=== PATIENT | male | born 1955 | race Caucasian/White ===

== ENCOUNTER → 2017-01-08 | Outpatient (CLI) | payer OTHER ==
[2016-03-10 08:23] VITALS: BP 147/74
[~2017-01-08] MED LIST: ACET500T68 PO; AMIT25TA PO; CELE200C PO; CHOL500016 PO; CYCL10TA2 PO; GABA800T2 PO; LORA10TA3 PO; MELA3TAB PO
--- NOTE | 2017-01-11 16:12 | SLEEP ---
DATE OF STUDY: 01/08/2017 ATTENDING PHYSICIAN: Dr. Karri Way. The patient is a 61-year-old who weighs 230 pounds with a BMI of 32. The patient's Kelayres score was 9. Sleep study was performed at [facility]. This was a split night study. During the night study, the patient spent 399 minutes in bed and slept for 316 minutes with a sleep efficiency of 79%. Sleep latency was 19 minutes with a REM latency of 284 minutes. Overall, sleep architecture showed normal stage I sleep, slightly increased stage II sleep, normal slow wave, and normal REM sleep. During the initial diagnostic portion of the study, the patient slept for 158 minutes. During this time, there was 1 obstructive apnea, 7 mixed and 1 central apneas. There were 71 hypopneas. The patient's apnea-hypopnea index was 30 per hour. Supine index was 38 per hour. REM sleep was not seen during the diagnostic portion. EKG monitoring revealed normal sinus rhythm. Average heart rate was 67 beats per minute. No sustained arrhythmias were observed. Nocturnal oximetry study revealed a mean oxygen saturation of 97% with the lowest of 88%. PLMS were seen at index of 4 per hour, and 1 per hour caused EEG arousals. The patient met the criteria for CPAP initiation. It was started at 5 cm of water and titrated up to 7 cm of water. At the final pressure, the patient had 80 minutes of sleep. Supine as well as REM sleep was observed. AHI was reduced to 3 per hour, and oxygen saturation remained above 90%. The patient used a small-sized DreamWear nasal mask. IMPRESSION: 1. Severe sleep apnea-hypopnea syndrome with an apnea-hypopnea index of 30 per hour. 2. No clinically significant nocturnal hypoxia. 3. No clinically significant periodic limb movements during sleep. RECOMMENDATIONS: 1. CPAP at 7 cm of water completely eliminated the patient's sleep apnea, and should be used on a nightly basis. 2. Follow up in 4-6 weeks to assess compliance with CPAP and to document clinical improvement. 3. Weight loss is strongly advised. 4. Avoid [employer] depressants. 5. Caution regarding driving until symptoms of sleep apnea resolve with the use of CPAP. DONG ALLISON MD DR: JUAN/shahbaz JOB#: [id number] / [id number] KARRI Allison
== END | disposition home or self-care (01) ==
LOC: SLPLAB 18:58
PROVIDERS: ATTEND Internal Medicine
DX: G47.33 Obstructive sleep apnea (adult) (pediatric) (principal)
CPT/HCPCS: 95810

== ENCOUNTER → 2018-02-21 | Outpatient (CLI) | payer OTHER ==
[2018-02-21 10:13] LABS: ADD MAN DIFF? NO
[2018-02-21 10:30] LABS: BASO % 1 % (0-3); EOS # 0.4 x10^3/uL (0.0-0.7); EOS % 7 % (0-3); HEMATOCRIT 46.8 % (39.0-53.0); HEMOGLOBIN 16.1 g/dL (13.0-17.5); LYMPH # 2.8 x10^3/uL (1.0-4.8); LYMPH % 47 % (24-48); MEAN CORPUSCULAR HEMOGLOBIN 31 pg (25-35); MEAN CORPUSCULAR HGB CONC 34 g/dL (31-37); MEAN CORPUSCULAR VOLUME 90 fL (79-100); MONO # 0.6 x10^3/uL (0.0-1.1); MONO % 10 % (0-9); NEUT # 2.1 x10^3uL (1.8-7.7); NEUT % 35 % (31-73); PLATELET COUNT 163 x10^3/uL (140-400); RED BLOOD COUNT 5.19 x10^6/uL (4.30-5.70)
[2018-02-21 10:39] LABS: ALBUMIN 3.9 g/dL (3.4-5.0); ALBUMIN/GLOBULIN RATIO 1.1 (1.0-1.7); ALK PHOS 76 U/L (46-116); ALT (SGPT) 37 U/L (16-63); ANION GAP 10 (6-14); AST (SGOT) 20 U/L (15-37); BLOOD UREA NITROGEN 13 mg/dL (8-26); BUN/CREATININE RATIO 12 (6-20); CALCIUM 8.9 mg/dL (8.5-10.1); CARBON DIOXIDE 26 mmol/L (21-32); CHLORIDE 107 mmol/L (98-107); CHOLESTEROL 196 mg/dL (0-200); CREATININE 1.1 mg/dL (0.7-1.3); GFR 67.6; GLUCOSE 89 mg/dL (70-99); HDLC 29 mg/dL (40-60); LDLC 138 mg/dL (0-100); NON-HDL CHOLESTEROL 167 mg/dL (0-129); POTASSIUM 4.3 mmol/L (3.5-5.1); SODIUM 143 mmol/L (136-145); TOTAL BILIRUBIN 0.4 mg/dL (0.2-1.0); TOTAL PROTEIN 7.6 g/dL (6.4-8.2); TRIGLYCERIDES 147 mg/dL (0-150); VLDLC 29 mg/dL (0-40)
[2018-02-21 10:43] LABS: CHOLESTEROL/HDL RATIO 6.8
[2018-02-21 10:50] LABS: THYROID STIM HORMONE (TSH) 2.737 uIU/mL (0.358-3.74)
[2018-02-21 11:39] LABS: PROSTATE SPECIFIC ANTIGEN 1.71 ng/mL (0.00-4.00)
[2018-02-21 12:37] LABS: BILIRUBIN,URINE NEGATIVE (NEG); CLARITY,URINE CLEAR; COLOR,URINE YELLOW; GLUCOSE,URINE NEGATIVE (NEG); NITRITE,URINE NEGATIVE (NEG); PH,URINE 5.5; PROTEIN,URINE NEGATIVE (NEG-TRACE); UROBILINOGEN,URINE 0.2 mg/dL (0.2 mg/dL)
[2018-02-21 13:02] LABS: BACTERIA,URINE 0 /HPF (0-FEW); RBC,URINE 0 /HPF (0-2); SQUAMOUS EPITHELIAL CELL,UR FEW /LPF; WBC,URINE 0 /HPF (0-4)
== END | disposition home or self-care (01) ==
LOC: LAB 09:36
DX: Z12.5 Encounter for screening for malignant neoplasm of prostate (principal); Z00.01 Encounter for general adult medical examination with abnormal findings; R79.89 Other specified abnormal findings of blood chemistry
CPT/HCPCS: 36415; 80053; 80061; 81001; 84443; 85025; G0103

== ENCOUNTER → 2018-03-21 | Outpatient (CLI) | payer OTHER ==
[~2018-03-21] MED LIST changes: -ACET500T68 PO; -AMIT25TA PO; -CELE200C PO; -CHOL500016 PO; -CYCL10TA2 PO; -GABA800T2 PO; +IOHEXOL 180 MG/ML 10 ML VIAL.; +LIDOCAINE 1% PF 2 ML VIAL.; -LORA10TA3 PO; -MELA3TAB PO; +methylPREDNISolone ACETATE 40 MG/ML VIAL.; +methylPREDNISolone ACETATE 80 MG/ML VIAL.
== END ==
LOC: PNCL 12:40
DX: M51.16 Intervertebral disc disorders with radiculopathy, lumbar region (principal); M50.10 Cervical disc disorder with radiculopathy, unspecified cervical region; F17.210 Nicotine dependence, cigarettes, uncomplicated; Z98.890 Other specified postprocedural states; Z87.39 Personal history of other diseases of the musculoskeletal system and connective tissue; Z86.010 Personal history of colon polyps
CPT/HCPCS: 62323; J1030; J1040; Q9965

== ENCOUNTER → 2018-05-08 | Outpatient (CLI) | payer OTHER | LOC: MRI 10:16 | DX: M51.16 Intervertebral disc disorders with radiculopathy, lumbar region (principal); M48.061 Spinal stenosis, lumbar region without neurogenic claudication; M51.26 Other intervertebral disc displacement, lumbar region; M50.10 Cervical disc disorder with radiculopathy, unspecified cervical region; M19.90 Unspecified osteoarthritis, unspecified site; G47.30 Sleep apnea, unspecified; Z98.890 Other specified postprocedural states; Z86.010 Personal history of colon polyps; Z90.49 Acquired absence of other specified parts of digestive tract; Z79.899 Other long term (current) drug therapy; Z87.891 Personal history of nicotine dependence | CPT/HCPCS: 72148 ==

== ENCOUNTER → 2018-05-09 | Outpatient (CLI) | payer OTHER | END | disposition home or self-care (01) | LOC: PNCL 08:16 | DX: M51.16 Intervertebral disc disorders with radiculopathy, lumbar region (principal); M96.1 Postlaminectomy syndrome, not elsewhere classified; M48.061 Spinal stenosis, lumbar region without neurogenic claudication; M50.10 Cervical disc disorder with radiculopathy, unspecified cervical region; Z98.890 Other specified postprocedural states; Z86.010 Personal history of colon polyps; Z90.49 Acquired absence of other specified parts of digestive tract; M19.90 Unspecified osteoarthritis, unspecified site; Z87.891 Personal history of nicotine dependence; Z86.19 Personal history of other infectious and parasitic diseases; Z79.899 Other long term (current) drug therapy; Z87.39 Personal history of other diseases of the musculoskeletal system and connective tissue; G47.30 Sleep apnea, unspecified | CPT/HCPCS: 62323; J1030; J1040; Q9965 ==

== ENCOUNTER → 2018-06-06 | Outpatient (CLI) | payer OTHER ==
[2016-03-10 08:23] VITALS: BP 147/74
[~2018-06-06] MED LIST changes: +ACET500T68 PO; +AMIT25TA PO; +CELE200C PO; +CHOL500016 PO; +CYCL10TA2 PO; +GABA800T2 PO; -IOHEXOL 180 MG/ML 10 ML VIAL.; +IOHEXOL 180 MG/ML 10 ML VIAL. ONE; -LIDOCAINE 1% PF 2 ML VIAL.; +LIDOCAINE 2% PF 2ML VIAL. ONE; +LORA10TA3 PO; +MELA3TAB2 PO; -methylPREDNISolone ACETATE 40 MG/ML VIAL.; +methylPREDNISolone ACETATE 40 MG/ML VIAL. ONE; -methylPREDNISolone ACETATE 80 MG/ML VIAL.; +methylPREDNISolone ACETATE 80 MG/ML VIAL. ONE
--- NOTE | 2018-06-06 13:41 | PAIN ---
DATE OF SERVICE: 06/06/2018 DIAGNOSES: Lumbar radiculopathy with lumbar degenerative disk disease and lumbar post-laminectomy syndrome with lumbar herniated disk. HISTORY OF PRESENT ILLNESS: The patient is a 62-year-old male who returns for followup status post lumbar epidural steroid injection x 2, last seen 05/09/2018. The patient reports he did very well for the last injection about 60% improvement overall in the low back and right leg. The patient reports still some pain in the left leg and numbness in the left leg as well, but doing much better overall. The patient reports his pain is worse with standing or standing up straight, but he has been increasing the distance walking, doing household activity, also playing drums more comfortably. The patient reports his pain is 7 on a scale of 10 at its worst, 4 at average, 3 at its least and is a 4 today. The patient reports it is sharp, tight, burning, radiating in the lower extremities, again some numbness in the left leg, but much better on the right. The patient reports no new motor or sensory deficits, no new bowel or bladder incontinence or other complaints. PHYSICAL EXAMINATION: VITAL SIGNS: The patient's blood pressure 151/52, pulse 69, respirations 16, temperature 98.2 degrees Fahrenheit. Height is 5 feet 11 inches, weight is 232 pounds. GENERAL: The patient is awake, alert, oriented, appropriate, very pleasant demeanor. HEENT: Head shows normocephalic, atraumatic. Extraocular movements are intact, symmetrical. Oral cavity, mucous membranes are moist and pink. Dentition is intact. NECK: Shows anterior throat supple without palpable lymphadenopathy noted. Swallow reflex is symmetrical. CHEST: Shows normal on inspection. Breath sounds clear to auscultation bilaterally. HEART: Shows S1, S2 clear. No murmurs auscultated. ABDOMEN: Soft, nontender, nondistended. No palpable organomegaly is noted. No rebound or guarding demonstrated. BACK: Shows spine grossly in the midline with some flattening of lumbar lordotic curvature with well-healed surgical scar and the lumbar paraspinous musculature shows symmetrical on inspection with some palpation shows some moderate tenderness throughout the upper, middle and lower distribution of the paraspinous muscles, but only diffusely in the paraspinous regions without radiation. No tenderness over the spinous processes, sacrum or sacroiliac regions. The patient has good rotational motion of lumbar spine, both laterally greater than 10 degrees right and left as well as extension greater than 10 degrees, forward flexion 45 degrees without significant pain reported. EXTREMITIES: Lower extremities show deep tendon reflexes at 2+ in the patellar, 1+ tendo calcaneus tendons. Motor exam is strong with 5/5 dorsiflexion, extension, quadriceps and hamstring flexion equal bilaterally. Options were discussed with the patient. The patient's old chart was reviewed as his current medication regimen and updated. Current review of systems is updated today as well. We will proceed with a third in the series of lumbar epidural steroid injection today with fluoroscopic guidance. Risks were again discussed including, but not limited to bleeding, infection, possibility of epidural hematoma and subsequent neurological compromise, dural puncture, headaches, spinal cord and/or nerve damage, side effects of steroid medication and poor results regarding pain control. The patient understands and wished to proceed. The patient will return to the clinic in approximately 2 weeks for followup, was counseled on return appointment, activity level and side effects to be aware of. DIAGNOSES: Lumbar radiculopathy with lumbar degenerative disk disease, post-lumbar laminectomy syndrome and herniated lumbar disk. PROCEDURE: Lumbar epidural steroid injection, translaminar approach L3-L4 level using C-arm fluoroscopic guidance under sterile prep and drape using local anesthetic. MEDICATION INJECTED: A total of 120 mg Depo-Medrol plus 10 mL of preservative-free normal saline and 2 mL of Isovue for contrast. CONDITION AT DISCHARGE: Stable. The patient tolerated procedure well, had no complications. EARLENE GÓMEZ MD DR: YOVANY/shahbaz JOB#: [id number] / [id number]
== END | disposition home or self-care (01) ==
LOC: PNCL 07:41
PROVIDERS: ATTEND Anesthesiology
DX: M51.16 Intervertebral disc disorders with radiculopathy, lumbar region (principal); M48.061 Spinal stenosis, lumbar region without neurogenic claudication; M96.1 Postlaminectomy syndrome, not elsewhere classified; G47.30 Sleep apnea, unspecified; M19.90 Unspecified osteoarthritis, unspecified site; Z90.49 Acquired absence of other specified parts of digestive tract; Z79.899 Other long term (current) drug therapy; Z98.890 Other specified postprocedural states; Z86.010 Personal history of colon polyps; Z86.19 Personal history of other infectious and parasitic diseases
CPT/HCPCS: 62323; J1030; J1040; J2001; Q9965

== ENCOUNTER → 2018-10-17 | Outpatient (CLI) | payer OTHER ==
[2016-03-10 08:23] VITALS: BP 147/74
[~2018-10-17] MED LIST changes: -GABA800T2 PO; +GABA800T3 PO; -LIDOCAINE 2% PF 2ML VIAL. ONE
--- NOTE | 2018-10-17 22:41 | PAIN ---
DATE OF SERVICE: 10/17/2018 PROGRESS NOTE FOR PAIN CLINIC: DIAGNOSES: Lumbar radiculopathy with lumbar degenerative disk disease and lumbar post-laminectomy syndrome and lumbar herniated disk. HISTORY OF PRESENT ILLNESS: The patient is a 63-year-old male who returns for followup, seen 06/06/2018. The patient had a lumbar epidural steroid injection at that time with about 60% improvement. Pain in the low back and right leg now returning. For about 2 months, the patient reports in the low back radiating to the right lower extremity, right posterolateral thigh, anterior thigh, anterior medial thigh, medial lower leg into the knee as well. The patient reports it is across the low back on the right side. The patient reports it is an 8 on a scale of 10 at its worst, 5 on average and 3 at its least and is a 5 today, reports as tingling, sharp, sometimes cold and hot sensations in the leg as well, certain bending and stooping activities. The patient reports initially was increasing his activity walking, doing work activities, household activities with much greater ease and comfort and traveling with much greater ease and comfort as well. The patient reports he still sleeps fairly well at night, but it can awaken him from sleep, not every night but usually about every 7 hours to 8 hours. The patient reports no new motor or sensory deficits, no new bowel or bladder incontinence, but still significant pain, increasing again over the past month or so in the low back and right leg. PHYSICAL EXAMINATION: VITAL SIGNS: The patient's blood pressure 141/87, pulse 75, respirations are 18, temperature 97.8 degrees Fahrenheit, height is 5 feet 11 inches, weighs 239 pounds. GENERAL: The patient is awake, alert, oriented, appropriate, very pleasant demeanor. HEENT: Head is normocephalic, atraumatic. Extraocular movements are intact and symmetrical. Oral cavity, mucous membranes are moist and pink. Dentition is intact. NECK: Shows anterior throat supple without palpable lymphadenopathy noted. Swallow reflex symmetrical. CHEST: Shows normal with inspection. Breath sounds clear to auscultation bilaterally. HEART: Shows S1, S2 clear. No murmurs auscultated. ABDOMEN: Soft, nontender, nondistended. No palpable organomegaly is noted. No rebound or guarding demonstrated. BACK: Shows spine grossly in the midline. Normal appearing thoracic kyphosis and lumbar lordotic curvature slightly flattened with well-healed surgical scarring of the lumbar distribution. Lumbar paraspinous muscle shows symmetrical on inspection, with palpation shows some moderate tenderness diffusely throughout the upper, middle and lower distribution of paraspinous muscles, but only diffusely without radiation. The patient shows good rotational motion of lumbar spine with extension, flexion, right and left lateral rotation without significant increase in pain. EXTREMITIES: Lower extremities show deep tendon reflexes at 2+ in the patellar, 1+ tendo-calcaneus tendons are equal. Motor exam is strong with 5/5 dorsiflexion, extension, quadriceps and hamstring flexion. Peripheral pulses are 1+ posterior tibial. No peripheral edema is noted bilaterally. Options were discussed with the patient. The patient's old chart was reviewed as well as his current medication regimen updated. Current review of systems updated today as well. We will proceed with a first in this series of lumbar epidural steroid injection today with fluoroscopic guidance. Risks were again discussed including, but not limited to bleeding, infection, possibility of epidural hematoma, subsequent neurologic compromise, dural puncture, headaches, spinal cord and/or nerve damage, side effects of steroid medication and poor results regarding pain control. The patient understands and wished to proceed. The patient will return to clinic in approximately 2 weeks for followup, was counseled as to return appointment, activity level and side effects to be aware of. DIAGNOSES: Lumbar radiculopathy with lumbar degenerative disk disease, post-laminectomy syndrome and lumbar herniated disk. PROCEDURE: Lumbar epidural steroid injection, translaminar approach at L3-L4 level using C-arm fluoroscopic guidance under sterile prep and drape using local anesthetic. MEDICATION INJECTED: A total of 120 mg Depo-Medrol plus 10 mL of preservative-free normal saline and 2 mL of Isovue for contrast. CONDITION AT DISCHARGE: Stable. The patient tolerated the procedure well, had no complications. EARLENE GÓMEZ MD DR: YOVANY/shahbaz JOB#: [id number] / [id number]
== END | disposition home or self-care (01) ==
LOC: PNCL 09:37
PROVIDERS: ATTEND Anesthesiology
DX: M51.16 Intervertebral disc disorders with radiculopathy, lumbar region (principal); M96.1 Postlaminectomy syndrome, not elsewhere classified
CPT/HCPCS: 62323; J1030; J1040; Q9965

== ENCOUNTER → 2018-12-09 | Outpatient (CLI) | payer OTHER ==
[2016-03-10 08:23] VITALS: BP 147/74
[~2018-12-09] MED LIST changes: -GABA800T3 PO; +GABA800T5 PO; +IOHEXOL 180 MG/ML 10 ML VIAL. IT ONE; -IOHEXOL 180 MG/ML 10 ML VIAL. ONE; +LIDOCAINE 1% Multi-Dose 20 ML VIAL. ID ONE; +RIZA10TA PO; -methylPREDNISolone ACETATE 40 MG/ML VIAL. ONE; -methylPREDNISolone ACETATE 80 MG/ML VIAL. ONE
--- NOTE | 2018-12-09 12:55 | KCIC ---
Lumbar myelogram December 09, [address] lumbar spine with contrast INDICATION: Lower back pain radiating down bilateral legs with numbness. History of prior lumbar surgery. COMPARISON: MRI lumbar spine August 31, 2004 TECHNIQUE: 5 views of the lumbosacral spine were obtained including flexion and extension views. Risks and benefits were discussed with the patient after which informed consent was obtained. Patient was placed prone on the examination table. Site was marked under fluoroscopic guidance. This site was prepped and draped in normal sterile fashion. 1 percent lidocaine was administered for superficial anesthetic effect. Initially, attempt was made to insert a 22-gauge 3 1/2 inch spinal needle at the L2-L3 vertebral level utilizing a left paraspinous approach which was unsuccessful. Subsequently, a 22-gauge 3 1/2 inch spinal needle was inserted successfully into the thecal sac at L4-L5 vertebral level. 18 cc Omnipaque 180 was administered into the thecal sac. No competitions were identified at that time of procedure. Patient tolerated procedure well. Patient was subsequently transported to the CT scanner for further imaging. Multiple axial CT images of the lumbar spine were obtained without intrathecal contrast. Coronal and sagittal reformats are provided. FINDINGS: Left-sided L4-L5 posterior fusion is identified with unilateral left-sided facet screws. There is no shift in alignment at L4-L5 upon flexion and extension. No significant spondylolisthesis is visualized. Unilateral left-sided fusion is identified at L4-L5. There is no lucency surrounding the hardware. Hardware appears intact. There is moderate disc height loss at L4-L5. There is mild disc height loss at L5-S1. There is no significant spondylolisthesis. Vertebral body heights are maintained. No acute fracture is identified. Laminectomy changes are identified at L4-L5. Abdominal aorta is normal in caliber with mild calcified atheromatous plaque. No suspicious retroperitoneal lymphadenopathy is identified. Visualized portions of the sacrum appear intact. The nerve roots within the thecal sac from L2-L3 inferiorly appears thickened with a mild degree of clumping which may reflect chronic inflammation as may be seen with arachnoiditis. This finding is new from the prior MRI from 2003. L1-L2: There is a mild circumferential disc bulge. There is no significant facet arthropathy. There is no significant neuroforaminal or spinal canal stenosis. L2-L3: There is a large circumferential disc bulge. There is moderate left and severe right facet arthropathy. There is ligamentum flavum infolding. There is moderate bilateral neuroforaminal stenosis. There is severe spinal canal stenosis with near complete effacement of the thecal sac. Residual thecal sac measures approximately 4 mm in AP dimension. Findings are significantly progressed since August 31, 2004. L3-L4: There is a moderate disc bulge with left far lateral disc protrusion. There is severe left and moderate right facet arthropathy ligamentum flavum infolding. There is moderate right and severe left neuroforaminal stenosis. There is left lateral recess stenosis. There is moderate spinal canal stenosis. Findings have progressed since the prior examination. L4-L5: This level is decompressed partially fused. There is a posterior disc osteophyte complex. There is severe left and moderate right neuroforaminal stenosis. No spinal canal stenosis. L5-S1: There is mild disc bulge. There is severe facet arthropathy. There is severe bilateral neuroforaminal stenosis, progressed since prior examination. IMPRESSION: Moderate to advanced degenerative changes of the lumbar spine, as described in detail above. Findings have significantly progressed at L2-L3 and L3-L4. Left unilateral posterior fusion at L4-L5 is noted without evidence for hardware failure. Electronically signed by: Ami Ortiz MD (12/09/2018 12:52 PM) [id number]
== END | disposition home or self-care (01) ==
LOC: KCIC 08:54
PROVIDERS: ATTEND Neurological Surgery
DX: M47.896 Other spondylosis, lumbar region (principal); M43.26 Fusion of spine, lumbar region; M25.78 Osteophyte, vertebrae; M48.07 Spinal stenosis, lumbosacral region; M12.88 Other specific arthropathies, not elsewhere classified, other specified site; M48.061 Spinal stenosis, lumbar region without neurogenic claudication; M51.26 Other intervertebral disc displacement, lumbar region; I70.0 Atherosclerosis of aorta
CPT/HCPCS: 72110; 72132; 72265; Q9965

== ENCOUNTER → 2019-01-07 | Outpatient (CLI) | payer OTHER ==
[2016-03-10 08:23] VITALS: BP 147/74
[~2019-01-07] MED LIST changes: -IOHEXOL 180 MG/ML 10 ML VIAL. IT ONE; -LIDOCAINE 1% Multi-Dose 20 ML VIAL. ID ONE
[2019-01-07 14:10] LABS: BASO % 1 % (0-3); EOS # 0.3 x10^3/uL (0.0-0.7); EOS % 5 % (0-3); HEMATOCRIT 43.6 % (39.0-53.0); HEMOGLOBIN 15.2 g/dL (13.0-17.5); LYMPH % 29 % (24-48); MEAN CORPUSCULAR HEMOGLOBIN 31 pg (25-35); MEAN CORPUSCULAR HGB CONC 35 g/dL (31-37); MEAN CORPUSCULAR VOLUME 90 fL (79-100); MONO # 0.7 x10^3/uL (0.0-1.1); MONO % 10 % (0-9); NEUT # 3.9 x10^3uL (1.8-7.7); NEUT % 56 % (31-73); PLATELET COUNT 149 x10^3/uL (140-400); RED BLOOD COUNT 4.86 x10^6/uL (4.30-5.70); RED CELL DISTRIBUTION WIDTH 14.6 % (11.5-14.5)
[2019-01-07 14:17] LABS: PROTHROMBIN TIME PATIENT 12.8 SEC (11.7-14.0)
[2019-01-07 14:30] LABS: ALBUMIN 3.9 g/dL (3.4-5.0); ALBUMIN/GLOBULIN RATIO 1.3 (1.0-1.7); CALCIUM 8.6 mg/dL (8.5-10.1); CREATININE 0.9 mg/dL (0.7-1.3); POTASSIUM 3.9 mmol/L (3.5-5.1); TOTAL BILIRUBIN 0.4 mg/dL (0.2-1.0)
--- NOTE | 2019-01-07 14:31 | EKG ---
[facility] [address] [place] [address] Test Date: 2019-01-07 Test Time: 14:08:24 Pat Name: STONE PIERSON Department: Room: Gender: Male Receiving Specialist: : 1955 Requested By: PANCHO GONZALES Order Number: [id number] Reading MD: Teodoro Romano Measurements Intervals [place] Rate: 79 P: 31 NH: 176 QRS: -7 QRSD: 86 T: 21 QT: 390 QTc: 448 Interpretive Statements SINUS RHYTHM INTERPOLATED ATRIAL PREMATURE COMPLEX(ES) NONSPECIFIC ST-T WAVE CHANGES. LEFTWARD AXIS Electronically Signed On 01-09-2019 11:27:51 CDT by Teodoro Romano
--- NOTE | 2019-01-07 15:56 | RAD ---
AP and Lateral Views of the Chest 01/07/2019 1:41 PM Indication: PRE OP, PT TO HAVE LAMINECTOMY 01/14 Comparison: Chest radiograph March 25, 2009 Findings: There is no focal consolidation or infiltrate identified. The cardiomediastinal silhouette is within normal limits. There is no evidence of pneumothorax or pleural effusion. No acute osseous abnormalities are identified. Postoperative changes to the cervical spine noted. Impression: No evidence of acute cardiopulmonary process. Electronically signed by: John Hu MD (01/07/2019 3:53 PM) [id number]
== END | disposition home or self-care (01) ==
LOC: SURGPAT 13:13
PROVIDERS: ATTEND Neurological Surgery
DX: Z01.818 Encounter for other preprocedural examination (principal); M48.03 Spinal stenosis, cervicothoracic region; M54.16 Radiculopathy, lumbar region; Z79.01 Long term (current) use of anticoagulants; Z87.891 Personal history of nicotine dependence
CPT/HCPCS: 36415; 71046; 80053; 85025; 85610; 85730; 87641; 93005

== ENCOUNTER 2019-01-14 07:15 | Observation (INO) | payer OTHER ==
[~2019-01-14] VITALS: Ht 180.3 cm; Wt 106.6 kg
[2019-01-14] VITALS (7 sets, daily range): BP systolic 133–159; BP diastolic 82–102
[~2019-01-14 07:15] MED LIST changes: +BACITRACIN 50,000 UNIT in IV NORMAL SALINE 1000ML BAG 1,000 ML IRR ONE; +BUPIVACAINE MPF 0.5% 30 ML VIAL. ONE; -CELE200C PO; -CHOL500016 PO; +GELATIN SPONGE SIZE 100. ONE; +HYDROmorphone 2 MG/ML VIAL IV PRN; +IV RINGERS,LACTATED 1000ML 1,000 ML IV SCH; +LIDOCAINE 1%/EPI 1:100,000 20 ML VIAL. ONE; -LORA10TA3 PO; +ONDANSETRON PF 4 MG/2 ML VIAL. IV PRN; +PROCHLORPERAZINE 10 MG/2 ML VIAL. IV PRN; +PROPOFOL 100 ML IV ONE; +THROMBIN TOPICAL 20,000 UNIT SPRAY.SYRN KIT TP ONE; +fentaNYL PF VIAL 100 MCG/2 ML VIAL IV PRN
[2019-01-14] MEDS ORDERED: LIDOCAINE 2% PF 5 ML VIAL. ONE (07:39)
[2019-01-14] MEDS ORDERED: DEXAMETHASONE SOD PHOS 20 MG/5 ML VIAL. ONE (07:39)
[2019-01-14] MEDS ORDERED: PROPOFOL 20 ML IV ONE (07:39)
[2019-01-14] MEDS ORDERED: ROCURONIUM 50 MG/5 ML VIAL. ONE (07:39)
[2019-01-14] MEDS ORDERED: PROPOFOL 0 ML IV ONE (07:39)
[2019-01-14] MEDS ORDERED: ONDANSETRON PF 4 MG/2 ML VIAL. ONE (07:39)
[2019-01-14] MEDS ORDERED: MIDAZOLAM HCL/PF 2 MG/2 ML VIAL. ONE (07:40)
[2019-01-14] MEDS ORDERED: REMIFENTANIL 2 MG VIAL. IV ONE (07:40)
[2019-01-14] MEDS: IV RINGERS,LACTATED 1000ML 1,000 ML IV SCH ×2 (08:00→21:19)
[2019-01-14] MEDS ORDERED: GLYCOPYRROLATE 1 MG/5 ML VIAL. ONE (09:17)
[2019-01-14] MEDS ORDERED: PHENYLEPHRINE 10 MG/ML VIAL. ONE (09:18)
[2019-01-14] MEDS ORDERED: NEOSTIGMINE METHYLSULFATE 5 MG/5 ML SYRINGE. ONE (11:13)
[2019-01-14] MEDS ORDERED: DESFLURANE > 120 MINUTES IH ONE (11:13)
[2019-01-14] MEDS ORDERED: fentaNYL PF VIAL 100 MCG/2 ML VIAL ONE ×3 (11:17→12:39)
--- NOTE | 2019-01-14 11:27 | PDOC ---
BRIEF OPERATIVE NOTE Date: Jan 14, 2019 Pre-Op Diagnosis lumbar radiculopathy, lumbar stenosis, lumbar spondylosis, back pain Post-Op Diagnosis same Procedure Performed bilateral laminectomies of L2-3 and L3-4, neuromonitoring Surgeon Mikayla Sales Operations Associate Maryuri Anesthesiologist Suzanne Anesthesia Type: General Blood Loss 25mL Specimens Obtained decompression Findings severe stenosis L2-3 and L3-4, neuromonitoring remained at least baseline throughout the procedure and was less adversely sensitive to manipulation upon completion of decompression Complications none apparent PANCHO GONZALES MD Jan 14, 2019 11:27
[2019-01-14] MEDS ORDERED: NALOXONE 0.4 MG/ML VIAL. IV PRN (11:45)
[2019-01-14] MEDS ORDERED: CALCIUM CARBONATE 500 MG TAB.CHEW PO PRN (11:45)
[2019-01-14] MEDS ORDERED: diphenhydrAMINE 50 MG/ML VIAL IV PRN (11:45)
[2019-01-14] MEDS ORDERED: fentaNYL PF VIAL 100 MCG/2 ML VIAL IV PRN ×2 (11:45)
[2019-01-14] MEDS ORDERED: ACETAMINOPHEN 325 MG TABLET. PO PRN (11:45)
[2019-01-14] MEDS ORDERED: ONDANSETRON PF 4 MG/2 ML VIAL. IV PRN (11:45)
[2019-01-14] MEDS ORDERED: ZOLPIDEM 5 MG TABLET. PO PRN (11:45)
[2019-01-14] MEDS ORDERED: oxyCODONE/APAP 5/325 1 TAB TABLET PO PRN (11:45)
[2019-01-14] MEDS ORDERED: MAG HYDROX/ALUMINUM HYD/SIMETH 30 ML ORAL.SUSP PO PRN (11:45)
[2019-01-14] MEDS ORDERED: MAGNESIUM HYDROXIDE 2,400 MG/30 ML ORAL.SUSP. PO PRN (11:45)
[2019-01-14] MEDS ORDERED: oxyCODONE IR 5 MG TABLET PO PRN (11:45)
[2019-01-14] MEDS ORDERED: 0.9 % SODIUM CHLORIDE 10 ML DISP.SYRIN. IV PRN (11:45)
[2019-01-14] MEDS ORDERED: diphenhydrAMINE HCL 25 MG CAPSULE PO PRN (11:45)
[2019-01-14] MEDS ORDERED: ceFAZolin 2GM PREMIX 2 GM/50 ML BAG IV ONE (12:00)
[2019-01-14] MEDS: fentaNYL PF VIAL 100 MCG/2 ML VIAL IV PRN ×4 (12:15→12:54)
[2019-01-14] MEDS ORDERED: SUMAtriptan SUCCINATE 100 MG TABLET PO PRN (12:15)
[2019-01-14] MEDS ORDERED: MORPHINE SULFATE 2 MG/ML VIAL. ONE ×2 (12:56→13:21)
[2019-01-14] MEDS: CHOLECALCIFEROL (VITAMIN D3) 5,000 UNIT CAPSULE PO SCH (13:00)
[2019-01-14] MEDS: MULTIVITAMIN with MINERAL TABLET. PO SCH (13:00)
[2019-01-14] MEDS: MORPHINE SULFATE 2 MG/ML VIAL. IV PRN ×4 (13:01→14:19)
[2019-01-14] MEDS: oxyCODONE/APAP 5/325 1 TAB TABLET PO PRN (13:24)
[2019-01-14] MEDS: METHOCARBAMOL 750 MG TABLET PO SCH ×2 (14:00→21:17)
[2019-01-14] MEDS: GABAPENTIN 400 MG CAPSULE. PO SCH ×2 (14:00→21:17)
--- NOTE | 2019-01-14 14:25 | NUR ---
Arrived to unit by bed from PACU. Alert and oriented x's 4. No c/o at this time. Ambulated to bathroom with assist x's 1 voided and return to bed. MARTHA's and PEREZ's on bilaterally. IVF's intact and infusing. Pedal pulses + bilaterally, warm touch and no c/o numbness. Oriented to room and controls. Side rails up x's 2 with call light in reach. at bedside. Cont. monitor.
[2019-01-14] MEDS: FERROUS SULFATE 325 MG TABLET. PO SCH (16:54)
[2019-01-14] MEDS: CALCIUM CARB/VIT D3 500/200 TABLET. PO SCH (16:54)
[2019-01-14] MEDS ORDERED: NON FORMULARY ITEM (Melatonin 10 MG) PO SCH (21:00)
[2019-01-14] MEDS ORDERED: AMITRIPTYLINE HCL 25 MG TABLET. PO SCH (21:00)
[2019-01-14] MEDS: SENNOSIDES/DOCUSATE 8.6/50MG TABLET. PO SCH (21:17)
[2019-01-14] MEDS: DOCUSATE SODIUM 100 MG CAPSULE. PO SCH (21:17)
[2019-01-15 03:20] VITALS: BP 125/70
--- NOTE | 2019-01-15 05:29 | NUR ---
Patient has had a restful night. No complaints of pain verbalized. Patient has rested quietly this shift. Vitals remain stable. Call light in reach.
[2019-01-15 06:33] VITALS: BP 154/85
[2019-01-15] MEDS: CALCIUM CARB/VIT D3 500/200 TABLET. PO SCH (08:00)
[2019-01-15] MEDS: FERROUS SULFATE 325 MG TABLET. PO SCH (08:00)
--- NOTE | 2019-01-15 08:00 | NUR ---
Juarez is doing well. he is ambulating in room. states the pain in his left leg is almost gone and numbness in toes is better. has good strength pulses and sensation bilateral lower extremities. dressing (reinforced ) is clean dry and intact. reviewed orally restrictions to activities of daily living.
[2019-01-15] MEDS: SENNOSIDES/DOCUSATE 8.6/50MG TABLET. PO SCH (08:22)
[2019-01-15] MEDS: METHOCARBAMOL 750 MG TABLET PO SCH (08:22)
[2019-01-15] MEDS: DOCUSATE SODIUM 100 MG CAPSULE. PO SCH (08:22)
[2019-01-15] MEDS: GABAPENTIN 400 MG CAPSULE. PO SCH (08:23)
[2019-01-15] MEDS: oxyCODONE/APAP 5/325 1 TAB TABLET PO PRN (08:25)
[2019-01-15] MEDS: CHOLECALCIFEROL (VITAMIN D3) 5,000 UNIT CAPSULE PO SCH (08:51)
[2019-01-15] MEDS: MULTIVITAMIN with MINERAL TABLET. PO SCH (08:51)
--- NOTE | 2019-01-15 09:00 | NUR ---
Passed physical therapy. pain is better after Percocet
--- NOTE | 2019-01-15 09:51 | PDOC ---
PROGRESS NOTES Subjective Subjective Reports resolution of leg pain and numbness. Some incisional pain controlled by current regimen. Has been ambulating around the unit without problems. Objective Objective Vital Signs Date Time Temp Pulse Resp B/P (MAP) Pulse Ox O2 Delivery O2 Flow Rate FiO2 01/15/19 08:25 20 01/15/19 06:33 98.2 70 154/85 (108) 96 Room Air 98.2 01/14/19 12:15 8.0 Intake and Output 01/15/19 07:00 Intake Total 2090 ml Output Total 25 ml Balance 2065 ml Intake Oral 1140 ml IV Total 950 ml Output Estimated Blood Loss 25 ml # Voids 5 Physical Exam Physical Exam AAOx4, NAD, dressing c/d/i, CAICEDO 5/5, sensation intact LT Assessment Assessment POD 1 L2-3, L3-4 bilateral laminectomy -neurologically intact with significant improvement of preoperative leg symptoms Plan Plan of Care -continue to mobilize with standard post-op restrictions -d/c home today -follow-up with [facility] in two weeks Comment Review of Relevant I have reviewed the following items cheyenne (where applicable) has been applied. Medications Current Medications Bacitracin 13256 unit/Sodium Chloride 1,000 ml @ 1,000 mls/hr 1X ONCE IRR Last administered on 01/14/19at 08:30; Start 01/14/19 at 06:00; Stop 01/14/19 at 06:59; Status DC Ondansetron HCl (Zofran) 4 mg PRN Q6HRS PRN IV NAUSEA/VOMITING; Start 01/14/19 at 07:00; Stop 01/14/19 at 16:00; Status DC Fentanyl Citrate (Fentanyl 2ml Vial) 25 mcg PRN Q5MIN PRN IV MILD PAIN; Start 01/14/19 at 07:00; Stop 01/14/19 at 16:00; Status DC Fentanyl Citrate (Fentanyl 2ml Vial) 50 mcg PRN Q5MIN PRN IV MODERATE TO SEVERE PAIN Last administered on 01/14/19at 12:54; Start 01/14/19 at 07:00; Stop 01/14/19 at 16:00; Status DC Morphine Sulfate (Morphine Sulfate) 1 mg PRN Q10MIN PRN IV SEVERE PAIN Last administered on 01/14/19at 14:19; Start 01/14/19 at 07:00; Stop 01/14/19 at 16:00 ; Status DC Ringer's Solution 1,000 ml @ 30 mls/hr Q24H IV Last administered on 01/14/19at 07:57; Start 01/14/19 at 07:00; Stop 01/14/19 at 18:59; Status DC Hydromorphone HCl (Dilaudid) 0.5 mg PRN Q10MIN PRN IV SEV PAIN, Second choice; Start 01/14/19 at 07:00; Stop 01/14/19 at 16:00; Status DC Prochlorperazine Edisylate (Compazine) 5 mg PACU PRN PRN IV NAUSEA, MRX1; Start 01/14/19 at 07:00; Stop 01/14/19 at 16:00; Status DC Cefazolin Sodium/ Dextrose 50 ml @ 100 mls/hr 1X PREOP PRN IV PRIOR TO PROCEDURE Last administered on 01/14/19at 08:35; Start 01/14/19 at 06:00; Stop at 15:47; Status DC Gelatin (Gelfoam Size 100) 1 each STK-MED ONCE .ROUTE ; Start 01/14/19 at 05:59 ; Stop 01/14/19 at 07:00; Status DC Bupivacaine HCl (Sensorcaine Mpf 0.5%) 30 ml STK-MED ONCE .ROUTE Last administered on 01/14/19at 09:56; Start 01/14/19 at 05:59; Stop 01/14/19 at 07:00 ; Status DC Lidocaine/ Epinephrine (LIDOCAINE 1%-EPI 1:100,000 Multi-Dose) 20 ml STK-MED ONCE .ROUTE Last administered on 01/14/19at 09:25; Start 01/14/19 at 06:00; Stop 01/14/19 at 07:00; Status DC Thrombin 20,000 unit STK-MED ONCE TP ; Start 01/14/19 at 06:00; Stop 01/14/19 at 07:00; Status DC Propofol 20 ml @ As Directed STK-MED ONCE IV ; Start 01/14/19 at 07:39; Stop at 07:40; Status DC Dexamethasone Sodium Phosphate (Decadron) 20 mg STK-MED ONCE .ROUTE ; Start at 07:39; Stop 01/14/19 at 07:40; Status DC Lidocaine HCl (Lidocaine Pf 2% Vial) 5 ml STK-MED ONCE .ROUTE ; Start 01/14/19 at 07:39; Stop 01/14/19 at 07:40; Status DC Ondansetron HCl (Zofran) 4 mg STK-MED ONCE .ROUTE ; Start 01/14/19 at 07:39; Stop 01/14/19 at 07:40; Status DC Propofol 0 ml @ As Directed STK-MED ONCE IV ; Start 01/14/19 at 07:39; Stop at 07:40; Status DC Rocuronium [place] (Zemuron) 50 mg STK-MED ONCE .ROUTE ; Start 01/14/19 at 07:39 ; Stop 01/14/19 at 07:40; Status DC Remifentanil HCl (Ultiva) 2 mg STK-MED ONCE IV ; Start 01/14/19 at 07:40; Stop 01/14/19 at 07:41; Status DC Midazolam HCl (Versed) 2 mg STK-MED ONCE .ROUTE ; Start 01/14/19 at 07:40; Stop 01/14/19 at 07:41; Status DC Ringer's Solution 1,000 ml @ 75 mls/hr [id number] IV ; Start 01/14/19 at 08:00 Propofol 100 ml @ As Directed STK-MED ONCE IV ; Start 01/14/19 at 07:12; Stop 01/14/19 at 08:13; Status DC Ephedrine Sulfate (Akovaz) 50 mg STK-MED ONCE .ROUTE ; Start 01/14/19 at 09:17; Stop 01/14/19 at 09:18; Status DC Glycopyrrolate (Robinul) 1 mg STK-MED ONCE .ROUTE ; Start 01/14/19 at 09:17; Stop 01/14/19 at 09:18; Status DC Phenylephrine HCl (Zach-Synephrine Inj) 10 mg STK-MED ONCE .ROUTE ; Start at 09:18; Stop 01/14/19 at 09:19; Status DC Desflurane (Suprane) 90 ml STK-MED ONCE IH ; Start 01/14/19 at 11:13; Stop 01/14 at 11:14; Status DC Neostigmine Methylsulfate (Neostigmine Methylsulfate) 5 mg STK-MED ONCE .ROUTE ; Start 01/14/19 at 11:13; Stop 01/14/19 at 11:14; Status DC Fentanyl Citrate (Fentanyl 2ml Vial) 100 mcg STK-MED ONCE .ROUTE ; Start at 11:17; Stop 01/14/19 at 11:18; Status DC Amitriptyline HCl (Elavil) 25 mg QHS PO Last administered on 01/14/19at 21:17; Start 01/14/19 at 21:00 Vitamin D (Vitamin D3) 5,000 unit DAILY PO ; Start 01/14/19 at 13:00 Gabapentin (Neurontin) 800 mg TID PO Last administered on 01/15/19at 08:23; Start 01/14/19 at 14:00 Non-Formulary Medication (Melatonin ) 10 mg HS PO ; Start 01/14/19 at 21:00; Status UNV Sumatriptan Succinate (Imitrex) 100 mg PRN Q2HR PRN PO MIGRAINE HEADACHE; Start 01/14/19 at 12:15 Multivitamins (Thera M Plus) 1 tab DAILY PO ; Start 01/14/19 at 13:00 Calcium/Vitamin D (Oscal D 500mg/ 200uts) 1 tab BIDWMEALS PO Last administered on 01/15/19at 08:00; Start 01/14/19 at 17:00 Ferrous Sulfate (Feosol) 325 mg BIDWMEALS PO Last administered on 01/14/19at 16: 54; Start 01/14/19 at 17:00 Oxycodone HCl (Roxicodone) 5 mg PRN Q3HRS PRN PO BREAKTHROUGH PAIN Last administered on 01/14/19at 21:31; Start 01/14/19 at 11:45 Acetaminophen (Tylenol) 650 mg PRN Q6HRS PRN PO MILD PAIN / TEMP; Start at 11:45 Al Hydroxide/Mg Hydroxide (Mylanta Plus Xs) 30 ml PRN Q3HRS PRN PO HEARTBURN / GAS; Start 01/14/19 at 11:45 Calcium Carbonate/ Glycine (Tums) 500 mg PRN Q3HRS PRN PO INDIGESTION; Start at 11:45 Diphenhydramine HCl (Benadryl) 25 mg PRN Q6HRS PRN PO ITCHING; Start 01/14/19 at 11:45 Diphenhydramine HCl (Benadryl) 25 mg PRN Q6HRS PRN IV ITCHING; Start 01/14/19 at 11:45 Zolpidem Tartrate (Ambien) 5 mg PRN QHS PRN PO INSOMNIA, MAY REPEAT IN 1HR; Start 01/14/19 at 11:45 Naloxone HCl (Narcan) 0.1 mg PRN Q2MIN PRN IV ADMIN; Start 01/14/19 at 11:45 Sodium Chloride (Normal Saline Flush) 3 ml QSHIFT PRN IV AFTER MEDS AND BLOOD DRAWS; Start 01/14/19 at 11:45 Oxycodone/ Acetaminophen (Percocet 5/325) 1 tab PRN Q4HRS PRN PO MILD PAIN, 1ST CHOICE Last administered on 01/14/19at 18:13; Start 01/14/19 at 11:45 Oxycodone/ Acetaminophen (Percocet 5/325) 2 tab PRN Q4HRS PRN PO MODERATE PAIN , SEVERE PAIN Last administered on 01/15/19at 08:25; Start 01/14/19 at 11:45 Methocarbamol (Robaxin) 750 mg TID PO Last administered on 01/15/19at 08:22; Start 01/14/19 at 14:00 Senna/Docusate Sodium (Senna Plus) 1 tab BID PO Last administered on 01/15/19at 08:22; Start 01/14/19 at 21:00 Docusate Sodium (Colace) 100 mg BID PO Last administered on 01/15/19at 08:22; Start 01/14/19 at 21:00 Magnesium Hydroxide (Milk Of Magnesia) 2,400 mg PRN Q12HR PRN PO CONSTIPATION; Start 01/14/19 at 11:45 Ondansetron HCl (Zofran) 4 mg PRN Q6HRS PRN IV NAUESA, 1ST CHOICE; Start at 11:45 Fentanyl Citrate (Fentanyl 2ml Vial) 50 mcg PRN Q1HR PRN IV SEVERE PAIN; Start 01/14/19 at 11:45 Fentanyl Citrate (Fentanyl 2ml Vial) 25 mcg PRN Q1HR PRN IV SEVERE PAIN; Start 01/14/19 at 11:45 Fentanyl Citrate (Fentanyl 2ml Vial) 100 mcg STK-MED ONCE .ROUTE ; Start at 12:09; Stop 01/14/19 at 12:10; Status DC Fentanyl Citrate (Fentanyl 2ml Vial) 100 mcg STK-MED ONCE .ROUTE ; Start at 12:39; Stop 01/14/19 at 12:40; Status DC Morphine Sulfate (Morphine Sulfate) 2 mg STK-MED ONCE .ROUTE ; Start 01/14/19 at 12:56; Stop 01/14/19 at 12:57; Status DC Morphine Sulfate (Morphine Sulfate) 2 mg STK-MED ONCE .ROUTE ; Start 01/14/19 at 13:21; Stop 01/14/19 at 13:22; Status DC Active Scripts Active Reported Maxalt (Rizatriptan Benzoate) 10 Mg Tablet 10 Mg PO PRN PRN Acetaminophen 500 Mg Tablet 2 Tab PO BID Amitriptyline Hcl 25 Mg Tablet 1 Tab PO QHS Melatonin 3 Mg Tablet 10 Mg PO HS Vitamin D3 (Cholecalciferol (Vitamin D3)) 5,000 Unit Tablet 1 Tab PO DAILY Loratadine 10 Mg Tablet 1 Tab PO DAILY Celebrex (Celecoxib) 200 Mg Capsule 200 Mg PO BID 30 Days Gabapentin 800 Mg Tablet 800 Mg PO TID Vitals/I & O Vital Sign - Last 24 Hours 01/14/19 01/14/19 01/14/19 01/14/19 11:48 12:00 12:03 12:15 Temp 97 97.0 97.0 97.0 Pulse 86 76 Resp 17 17 17 B/P (MAP) 164/67 171/85 Pulse Ox 100 100 100 O2 Delivery Room Air Mask Simple Mask Simple Mask Simple Mask O2 Flow Rate 8 8 8 8.0 01/14/19 01/14/19 01/14/19 01/14/19 12:18 12:29 12:33 12:46 Temp 97.0 97.0 97.0 97.0 Pulse 79 76 Resp 18 18 18 18 B/P (MAP) 147/89 151/69 Pulse Ox 98 98 98 98 O2 Delivery Room Air Simple Mask Room Air Room Air 01/14/19 01/14/19 01/14/19 01/14/19 12:48 12:54 13:01 13:03 Temp 97.0 97.0 97.0 97.0 Pulse 84 78 Resp 18 18 18 18 B/P (MAP) 154/70 120/97 Pulse Ox 98 98 98 99 O2 Delivery Room Air Room Air Room Air Room Air 01/14/19 01/14/19 01/14/19 01/14/19 13:13 13:18 13:24 13:25 Temp 97.0 97.0 Pulse 80 Resp 20 19 20 20 B/P (MAP) 148/72 Pulse Ox 98 98 98 99 O2 Delivery Room Air Room Air Room Air Room Air 01/14/19 01/14/19 01/14/19 01/14/19 13:33 13:48 14:03 14:19 Temp 97.0 97.0 97.9 97.0 97.0 97.9 Pulse 74 74 72 Resp 20 20 20 20 B/P (MAP) 126/72 126/72 131/72 Pulse Ox 98 100 99 99 O2 Delivery Room Air Room Air Room Air Room Air 01/14/19 01/14/19 01/14/19 01/14/19 14:25 14:30 14:30 14:45 Temp 97.7 97.7 Pulse 87 92 Resp 16 16 B/P (MAP) 156/96 (116) 140/102 (115) Pulse Ox 96 97 O2 Delivery Room Air Room Air Room Air Room Air 01/14/19 01/14/19 01/14/19 01/14/19 15:00 15:15 15:45 18:13 Pulse 81 84 76 B/P (MAP) 151/94 (113) 159/92 (114) 142/82 (102) Pulse Ox 97 97 98 O2 Delivery Room Air Room Air Room Air 01/14/19 01/14/19 01/14/19 01/14/19 19:05 19:30 19:30 21:31 Temp 98.5 98.5 Pulse 79 Resp 18 18 B/P (MAP) 133/89 (104) Pulse Ox 98 94 94 O2 Delivery Room Air Room Air Room Air Room Air 01/14/19 01/14/19 01/14/19 01/15/19 21:32 22:35 22:35 03:20 Temp 98.5 98.1 98.5 98.1 Pulse 78 63 Resp 18 B/P (MAP) 151/87 (108) 125/70 (88) Pulse Ox 96 96 O2 Delivery Room Air Room Air Room Air BiPAP/CPAP 01/15/19 01/15/19 06:33 08:25 Temp 98.2 98.2 Pulse 70 Resp 18 20 B/P (MAP) 154/85 (108) Pulse Ox 96 O2 Delivery Room Air Intake and Output 01/14/19 01/14/19 01/15/19 15:00 23:00 07:00 Intake Total 1150 ml 540 ml 400 ml Output Total 25 ml Balance 1125 ml 540 ml 400 ml PANCHO GONZALES MD Jan 15, 2019 09:51
--- NOTE | 2019-01-15 10:30 | NUR ---
reviewed with and Juarez discharge instructions regarding restrictions to activities of daily living such as bathing, lifting restriction, ambulation, follow up and incisional care. reviewed medications especially the new meds and side effects. scripts and dressing given to . demonstrated dressing change. questions answered. saline lock removed
--- NOTE | 2019-01-15 12:15 | OP ---
DATE OF SURGERY: 01/14/2019 SURGEON: Mckay Gonzales MD LEAD CASE MANAGER: Maryuri. PREOPERATIVE DIAGNOSES: Lumbar stenosis, lumbar radiculopathy, lumbar spondylosis back pain. POSTOPERATIVE DIAGNOSES: Lumbar stenosis, lumbar radiculopathy, lumbar spondylosis, back pain. PROCEDURE: Bilateral laminectomies at lumbar 2-3 and lumbar 3-4 with intraoperative use of neuromonitoring. ANESTHESIA: General. COMPLICATIONS: None intraprocedurally. INDICATIONS FOR THE PROCEDURE: The patient is a 63-year-old gentleman who presents with a significant lumbar radiculopathy related to degenerative lumbar stenosis, which has been refractory to conservative management. Please refer to the patient's chart for additional detail. DESCRIPTION OF PROCEDURE: After informed consent was obtained, the patient was brought to the operating room. He was placed under general anesthesia. He was placed in the prone position on the Isai table. All pressure points were checked and padded appropriately. Neuromonitoring was instituted and baseline potentials were obtained. An appropriate incision location was localized with fluoroscopy and the patient had a previous lumbar incision from a prior lumbar surgery just caudal to the current planned surgery. This was extended, centered over the region of lumbar 3 after the region was prepped and draped in the usual sterile fashion. Monopolar electrocautery was utilized after the skin incision was made to approach the spinous processes of lumbar 2 and 3. The spinous process of lumbar 4 had been previously removed from a prior surgery. Dissection was carried out bilaterally across the lamina at these locations. Level was again verified with fluoroscopy prior to the initiation of decompression and bilateral laminectomy was performed across the entirety of lumbar 3, the inferior aspect of lumbar 2, and the superior aspect of lumbar 4. This was performed with the Leksell as well as a Kerrison rongeur and a pneumatic drill. Significantly hypertrophied ligament was encountered underneath the lamina at all of these locations. This was gently dissected free with a Dallas and removed with a Kerrison rongeur. The thecal sac was noted to be very compressed upon the initiation of decompression. It was well decompressed at all locations upon the completion of the bilateral laminectomies. The ligamentous material in the lateral recesses at all locations bilaterally at lumbar 2-3 and 3-4 were removed with a Kerrison rongeur , as well. The thecal sac was noted to be very well decompressed upon completion. This was verified with direct visualization as well as gentle palpation with a Dallas. Neuromonitoring potentials were also noted to be at least baseline throughout the entire procedure and were much less noxiously sensitive to tactile stimuli upon completion of decompression. Pristine hemostasis was achieved with FloSeal, cottonoids, irrigation and some use of bipolar electrocautery. The wound was generously irrigated with antibiotic irrigation prior to the final closure. The muscle and fascia were then reapproximated with 0 Vicryl in a simple interrupted fashion. Subcutaneous tissues reapproximated with 2-0 Vicryl in interrupted inverted fashion. The skin was reapproximated with 4-0 Vicryl in a running subcuticular fashion. Mastisol and Steri-Strips were applied and the wound was dressed with Telfa and Tegaderm. At the end of procedure, all needle and sponge counts were correct. Ancef was utilized as a prophylactic antibiotic prior to the initiation of the procedure. The patient was subsequently extubated in the operating room and taken to recovery in stable condition. There were no intraprocedural complications apparent. MCKAY GONZALES MD DR: JACKSON/shahbaz JOB#: [id number] / [id number] VANESSA
[2019-01-15] MEDS ORDERED: CHOL500016 PO (13:07)
[2019-01-15] MEDS ORDERED: CELE200C PO (13:07)
[2019-01-15] MEDS ORDERED: LORA10TA3 PO (13:07)
--- NOTE | 2019-01-16 16:07 | PATHOLOGY ---
[facility] Accession Number: [id number] . 01 Material submitted: . DECOMPRESSION, LUMBAR . 01 Clinical history: . Lumbar stenosis . 02 Diagnosis: Segments of fibrocartilaginous, adipose, and skeletal muscle tissue and bone, lumbar decompression: - Degenerative changes of fibrocartilaginous tissue. . (JPM:mml; 01/16/2019) [facility]/01/16/2019 . 02 Comment: There is no evidence of an acute inflammatory process or malignancy. . (JPM:mml; 01/16/2019) . 02 Electronically signed: . Alpesh Marinelli MD, Pathologist NPI- [id number] . 01 Gross description: . The specimen is received in formalin, labeled "Paresh, Juarez, decompression" and additionally labeled on the requisition as, "lumbar decompression" and consists of multiple segments of fibrous pink-marin tissue and bone measuring 9.9 x 8.0 x 1.4 cm in aggregate. Orthodontic Band Maker tissue is submitted in A1 following decalcification. (SDY; 01/14/2019) SYU/SYU . 02 Pathologist provided ICD-10: M51.36 . 02 CPT . 373403, 475116 Specimen Comment: A courtesy copy of this report has been sent to Specimen Comment: [phone], . Specimen Comment: Report sent to / DR QUEEN Specimen Comment: A duplicate report has been generated due to demographic updates. Performed at: 01 [facility] [address], [place], [place] [id number] MD Tyree Correa MD Phone: [phone] Performed at: 02 [facility] [address] [place], [place] [id number] MD Alpesh Marinleli MD Phone: [phone]
== END 2019-01-15 10:45 | disposition home or self-care (01) ==
LOC: SURG 07:15 → 4 SOUTHEST 14:43
PROVIDERS: ADMIT Neurological Surgery; ATTEND Neurological Surgery
DX: M48.061 Spinal stenosis, lumbar region without neurogenic claudication (principal); M47.26 Other spondylosis with radiculopathy, lumbar region; J45.909 Unspecified asthma, uncomplicated; L98.8 Other specified disorders of the skin and subcutaneous tissue; B15.9 Hepatitis A without hepatic coma; G47.33 Obstructive sleep apnea (adult) (pediatric); Z98.890 Other specified postprocedural states
CPT/HCPCS: 63047; 63048; 76000; 88304; 88311; 97161; 97165; A7015; G0378; G0379; J0696; J1100; J2001; J2250; J2270; J2405; J2704; J2710; J3010; J3490; J7030

== ENCOUNTER → 2019-04-18 | Outpatient (CLI) | payer OTHER ==
[~2019-04-18] MED LIST changes: -BACITRACIN 50,000 UNIT in IV NORMAL SALINE 1000ML BAG 1,000 ML IRR ONE; -BUPIVACAINE MPF 0.5% 30 ML VIAL. ONE; +CELE200C PO; +CHOL500016 PO; +GADOTERATE 7.5 MMOL/15ML VIAL. IVP ONE; -GELATIN SPONGE SIZE 100. ONE; -HYDROmorphone 2 MG/ML VIAL IV PRN; -IV RINGERS,LACTATED 1000ML 1,000 ML IV SCH; -LIDOCAINE 1%/EPI 1:100,000 20 ML VIAL. ONE; +LORA10TA3 PO; -ONDANSETRON PF 4 MG/2 ML VIAL. IV PRN; -PROCHLORPERAZINE 10 MG/2 ML VIAL. IV PRN; -PROPOFOL 100 ML IV ONE; -THROMBIN TOPICAL 20,000 UNIT SPRAY.SYRN KIT TP ONE; -fentaNYL PF VIAL 100 MCG/2 ML VIAL IV PRN
--- NOTE | 2019-04-18 17:11 | RAD ---
MRI of the lumbar spine without and with contrast 04/18/2019 CLINICAL HISTORY: Low back pain with history of previous lumbar spine surgeries. TECHNIQUE: Unenhanced T1-weighted and T2-weighted sagittal and axial inversion parasagittal images the lumbar spine were obtained. After the intravenous administration of 21 cc of Dotarem, enhanced T1-weighted sagittal and axial images of the lumbar spine were obtained. FINDINGS: Comparison is made to patient's MRI of the lumbar spine dated 05/08/2018. Additional comparison is made to patient's lumbar myelogram dated 12/09/2018. Very mild S-shaped curvature of the thoracolumbar spine is seen. The patient is post left posterior lateral fusion at L4-5 using pedicle screws and stabilizing pamela and bone graft material. The patient is post laminectomy at L2-3 and L3-4. This is new since the previous examinations. Degenerative signal changes are seen involving all of the disks of the lumbar spine. Degenerative signal changes are seen within the marrow surrounding these discs. Loss of height of the L4-5 disc is noted. The conus medullaris is within normal limits in morphology, position, and signal characteristics. At the L1-2 disc space there is a mild generalized disc bulge. Degenerative changes are seen involving the facet joints bilaterally. These findings do not result in significant central spinal canal or neural foraminal stenosis. At the L2-3 disc space there is a mild to moderate generalized disc bulge. This is eccentric to the right. Superimposed on the disc bulge is a central/right paracentral focal disc protrusion. This measures 3 mm in AP diameter. Degenerative changes are seen involving the facet joints bilaterally. There are small facet joint effusions bilaterally. The severe central spinal canal stenosis seen on the previous examination has been decompressed within the laminectomy. No neural foraminal stenosis is seen. At the L3-4 disc space there is a mild generalized disc bulge. Degenerative changes are seen involving the facet joints, left greater than right. The severe central spinal canal stenosis seen on the previous examination has been decompressed by the laminectomy. Mild to moderate left greater than right neural foraminal stenosis is seen. At the L4-5 level degenerative changes are seen involving the facet joints bilaterally. No significant central spinal canal stenosis is seen. Mild bilateral neural foraminal stenosis is noted. At the L5-S1 disc space there is a mild generalized disc bulge. Degenerative changes are seen involving the facet joints bilaterally. These findings do not result in significant central spinal canal stenosis. Mild to moderate bilateral neural foraminal stenosis is seen. IMPRESSION: 1. Post left posterolateral fusion at L4-5. Post laminectomy at L2-3 and L3-4. The severe central spinal canal stenosis has been decompressed by the laminectomy at these levels since the previous study. 2. The changes of degenerative disc disease are seen throughout the lumbar spine. These findings do not result in significant central spinal canal stenosis. Mild to moderate left greater than right neural foraminal stenosis is seen at L3-4. Mild to moderate bilateral neural foraminal stenosis is seen at L4-5. Mild bilateral neural foraminal stenosis is seen at L4-5. Electronically signed by: Mendoza Enrique MD (04/18/2019 5:08 PM) [id number]
== END | disposition home or self-care (01) ==
LOC: MRI 14:02
PROVIDERS: ATTEND Neurological Surgery
DX: M51.36 Other intervertebral disc degeneration, lumbar region (principal); M48.07 Spinal stenosis, lumbosacral region; M51.27 Other intervertebral disc displacement, lumbosacral region; M47.817 Spondylosis without myelopathy or radiculopathy, lumbosacral region; M43.8X5 Other specified deforming dorsopathies, thoracolumbar region; Z98.1 Arthrodesis status
CPT/HCPCS: 72158; A9575

== ENCOUNTER → 2019-04-29 | Outpatient (CLI) | payer OTHER ==
[~2019-04-29] MED LIST changes: -GADOTERATE 7.5 MMOL/15ML VIAL. IVP ONE
[2019-04-29 10:58] LABS: BASO % 1 % (0-3); EOS # 0.4 x10^3/uL (0.0-0.7); EOS % 7 % (0-3); HEMATOCRIT 44.7 % (39.0-53.0); HEMOGLOBIN 15.6 g/dL (13.0-17.5); LYMPH # 2.3 x10^3/uL (1.0-4.8); LYMPH % 45 % (24-48); MEAN CORPUSCULAR HEMOGLOBIN 30 pg (25-35); MEAN CORPUSCULAR HGB CONC 35 g/dL (31-37); MEAN CORPUSCULAR VOLUME 86 fL (79-100); MONO # 0.4 x10^3/uL (0.0-1.1); MONO % 8 % (0-9); NEUT % 39 % (31-73); PLATELET COUNT 160 x10^3/uL (140-400); RED BLOOD COUNT 5.18 x10^6/uL (4.30-5.70); RED CELL DISTRIBUTION WIDTH 15.1 % (11.5-14.5); WHITE BLOOD COUNT 5.1 x10^3/uL (4.0-11.0)
== END | disposition home or self-care (01) ==
LOC: LAB 10:29
PROVIDERS: ATTEND Neurological Surgery
DX: T81.89XA Other complications of procedures, not elsewhere classified, initial encounter (principal)
CPT/HCPCS: 36415; 85025; 85651; 86140

== ENCOUNTER → 2019-06-05 | Outpatient (CLI) | payer OTHER ==
[~2019-06-05] MED LIST changes: +GADOTERATE 7.5 MMOL/15ML VIAL. IVP ONE
--- NOTE | 2019-06-05 11:20 | RAD ---
MRI Lumbar Spine without and with contrast History: Continued low back pain, history of fusion Technique: Multiplanar, multi sequential pre and postcontrast MR imaging was performed of the lumbar spine. Comparison: April 18, 2019 Findings: There is again left posterolateral fusion hardware with left pedicle screws at L4 and L5. Lumbar vertebral body stature is unchanged. AP alignment is unchanged. There is again severe narrowing of the L4-5 intervertebral disc space, mild degenerative disc disease L5-S1, L3-4, L2-3, and mild disc desiccation L1-2. Conus terminates near L1. There is no nodular enhancement of the conus or cauda equina, no significant enhancement or fluid in the intervertebral disc spaces. There is mild edema of the posterior, inferior L3 endplate as seen previously. L1-L2: Spinal canal and neural foramina are adequate. L2-L3: There again has been posterior decompression. There is again facet hypertrophic change. There is again mild anterior epidural signal coursing slightly below the intervertebral disc space more centrally possibly component of tiny extrusion although some degree of mild enhancement, overall similar in appearance. There is a similar degree of minimal narrowing of the far lateral recesses greater on the right. There is minimal inferior narrowing of the right neural foramen, left neural foramen overall adequate. L3-L4: There again has been posterior decompression centrally. There is again facet degenerative change. There is mild peripheral dural enhancement as seen previously, also enhancement posterior at site of posterior decompression. There is a similar degree of mild narrowing of the far lateral recesses greater on the left. There is again mild inferior narrowing of the right neural foramen by disc osteophyte complex. There is again moderate to severe narrowing somewhat greater distally of the left neural foramen by disc osteophyte complex and facet with contact exiting left L3 nerve root extending to proximal extraforaminal region. L4-L5: There again has been posterior decompression. There is facet degenerative change. There is mild narrowing of the right neural foramen. Osteophytes contribute to moderate to severe narrowing left neural foramen from posteriorly and to lesser degree inferiorly as seen previously. L5-S1: There is facet degenerative change and mild buckling of the ligamentum flavum. Spinal canal is overall adequate. There is again fairly severe narrowing of the right neural foramen by disc osteophyte complex/osteophytes and facet degenerative change with contact exiting right L5 nerve root, also at least moderate narrowing of the left neural foramen by osteophytes although somewhat poorly characterized. Impression: 1. Findings are similar compared with previous April 18, 2019 exam. There is again left posterolateral fusion hardware L4-5, multilevel posterior decompression L2-3 through L4-5. There is a similar degree of mild narrowing of the far lateral recesses most notable on the left at L3-4 and right greater than left at L2-3. There is neural foramina compromise as stated, more significant narrowing right greater than left at L5-S1 and on the left at L4-5 and L3-4. Electronically signed by: Andriy Ro MD (06/05/2019 11:17 AM) [id number]
== END | disposition home or self-care (01) ==
LOC: MRI 09:32
PROVIDERS: ATTEND Neurological Surgery
DX: M51.37 Other intervertebral disc degeneration, lumbosacral region (principal); M48.07 Spinal stenosis, lumbosacral region; M25.78 Osteophyte, vertebrae; M47.817 Spondylosis without myelopathy or radiculopathy, lumbosacral region; Z98.1 Arthrodesis status
CPT/HCPCS: 72158; A9575

== ENCOUNTER → 2019-10-13 | Outpatient (CLI) | payer OTHER ==
[~2019-10-13] MED LIST changes: -GADOTERATE 7.5 MMOL/15ML VIAL. IVP ONE; +IOHEXOL 180 MG/ML 10 ML VIAL. ONE; -MELA3TAB2 PO; +MELA3TAB56 PO; +methylPREDNISolone ACETATE 40 MG/ML VIAL. ONE; +methylPREDNISolone ACETATE 80 MG/ML VIAL. ONE
--- NOTE | 2019-10-14 02:50 | PAIN ---
DATE OF SERVICE: 10/13/2019 PROGRESS NOTE FOR PAIN CLINIC DIAGNOSES: Lumbar radiculopathy with lumbar degenerative disk disease and lumbar post-laminectomy syndrome. HISTORY OF PRESENT ILLNESS: The patient is a 63-year-old male who returns for followup, last seen about 1 year ago, 10/17/2018. The patient had lumbar epidural steroid injection at that time, did very well, subsequently had surgery in December of this year with decompressive surgery at L2-L3 and L3-L4 levels. The patient reports he did very well for several months after the surgery, but the pain is returning now, but different in the low back into the left posterior gluteus, posterolateral thigh and posterior calf on the left side only. The patient reports it is much lower than the pain as he had previously and more into the leg. The patient reports that it is 10 on a scale of 10 at its worst over the past week, 8 on average, 5 at its least. He did have a new MRI scan dated 05/2019. We reviewed that with both he and his spouse, showing some posterolateral fusion hardware at L4-L5, multiple decompression L2-L3, L3-L4, L4-L5 with neural foraminal compromise, more significant right narrow greater than left at L5-S1 and on the left at L4-L5 and L3-L4. The patient reports the pain is a 10 on a scale of 10 at its worst over the past week, 8 on average, 5 at its least and is a 5 today. The patient reports it is sharp, radiating, aching, shooting and dull across the back and also sometimes tingling in the leg as well. It also awakes him from sleep very rarely, better with sitting or lying down, worse with walking, standing, changing positions. The patient has tried oral prednisone without significant decrease in pain, having difficulty bending at the waist, especially when he bends it, becoming less active and much more docile, staying in a chair most of the time when he is at home. PHYSICAL EXAMINATION: VITAL SIGNS: The patient's blood pressure is 151/90, pulse 69, respirations 16, temperature 98.0 degrees Fahrenheit, height is 5 feet 11 inches and weight is 242 pounds. GENERAL: The patient is awake, alert, oriented, appropriate, very pleasant demeanor. HEENT: Normocephalic, atraumatic. Extraocular movements are intact and symmetrical. Oral cavity shows mucous membranes moist and pink. Dentition is intact. NECK: Shows anterior throat supple without palpable lymphadenopathy noted. Swallow reflex symmetrical. CHEST: Shows normal on inspection. Breath sounds are clear bilaterally. HEART: Shows S1, S2 clear. No murmurs auscultated. ABDOMEN: Soft, nontender, nondistended. No palpable organomegaly is noted. No rebound or guarding demonstrated. BACK: Shows spine grossly in the midline. Normal appearing thoracic kyphosis and lumbar lordotic curvature is flattened with well-healed surgical scar noted. Lumbar paraspinous muscle shows symmetrical on inspection, with palpation shows some moderate tenderness diffusely bilaterally, but only diffusely without radiation. The patient has good rotational motion of lumbar spine, some minor limitation in extension, but without significant pain. EXTREMITIES: Lower extremities show deep tendon reflexes at 2+ in patellar, 1+ tendo-calcaneus tendons. Motor exam is strong with approximately 4 on a scale of 5 with dorsiflexion, extension on the left and 5/5 on the right. Quadriceps and hamstring flexion, however, is 5/5 equal bilaterally. Peripheral pulses are 1+ posterior tibial. No peripheral edema bilaterally. Options were discussed with the patient. The patient's old chart was reviewed as his current medication regimen updated. Current review of systems updated today as well. We will proceed with a lumbar epidural steroid injection today first in this series with fluoroscopic guidance. Risks were again discussed including, but not limited to bleeding, infection, possibility of epidural hematoma, subsequent neurological compromise, dural puncture, headaches, spinal cord and/or nerve damage, side effects of steroid medication and poor results regarding pain control. The patient understands and wished to proceed. The patient will return to clinic in approximately 2 weeks for followup, was counseled on return appointment, activity level and side effects to be aware of. DIAGNOSES: Lumbar radiculopathy with lumbar degenerative disk disease and lumbar post-laminectomy syndrome. PROCEDURE: Lumbar epidural steroid injection, translaminar approach L5-S1 level using C-arm fluoroscopic guidance under sterile prep and drape using local anesthetic. MEDICATION INJECTED: A total of 120 mg Depo-Medrol plus 10 mL of preservative-free normal saline and 2 mL of contrast. CONDITION AT DISCHARGE: Stable. The patient tolerated the procedure well, had no complications. EARLENE GÓMEZ MD DR: Suzanne JOB#: [id number] / [id number]
== END ==
LOC: PNCL 08:52
PROVIDERS: ATTEND Anesthesiology
DX: M51.16 Intervertebral disc disorders with radiculopathy, lumbar region (principal); M96.1 Postlaminectomy syndrome, not elsewhere classified
CPT/HCPCS: 62323; J1030; J1040; Q9965

== ENCOUNTER → 2019-11-05 | Outpatient (CLI) | payer OTHER ==
--- NOTE | 2019-11-05 10:01 | PAIN ---
DATE OF SERVICE: 11/05/2019 PROGRESS NOTE FOR PAIN CLINIC DIAGNOSES: Lumbar radiculopathy with lumbar degenerative disk disease and lumbar post-laminectomy syndrome. HISTORY OF PRESENT ILLNESS: The patient is a 64-year-old male who returns for followup status post lumbar epidural steroid injection x 1 on 10/13/2019. The patient reports about 100% improvement just for a few days following the injection, the pain returned in the low back, left lower extremity radiating to posterior gluteus, posterior thigh and posterior calf. The patient reports it as a 10 on a scale of 10 over the past week, 8 on average, 6 at its least and is a 6 today. The patient reports it is sharp, severe, becoming more unbearable, worse with walking, standing, changing positions, better with sitting or lying down, does not awaken her from sleep at night, initially for the first few days, he was increasing distance walking, doing work activities, household activities with greater ease and comfort, now the pain is returning in the left lower extremity and low back. The patient reports no new motor or sensory deficits, no new bowel or bladder incontinence or other complaints. PHYSICAL EXAMINATION: VITAL SIGNS: The patient's blood pressure 117/66, pulse is 50, respirations are 18, temperature is 98.0 degrees Fahrenheit, height is 5 feet 11 inches, weight is 239 pounds. GENERAL: The patient is awake, alert, oriented, appropriate, very pleasant demeanor. HEENT: Head shows normocephalic, atraumatic. Extraocular movements are intact and symmetrical. Oral cavity: Mucous membranes moist and pink. Dentition is intact. NECK: Shows anterior throat supple without palpable lymphadenopathy noted. Swallow reflex symmetrical. CHEST: Shows normal on inspection. Breath sounds clear to auscultation bilaterally. HEART: Shows S1, S2 clear. No murmurs auscultated. ABDOMEN: Soft, nontender, nondistended. No palpable organomegaly is noted. No rebound or guarding demonstrated. BACK: Shows spine grossly in the midline. The patient has well-healed surgical scars noted in the midline as well. With palpation shows moderate tenderness diffusely bilaterally in the low lumbar paraspinous musculature only, but is symmetrical without evidence of hypertrophy, no trigger points, no radiation of pain. The patient has good rotational motion of lumbar spine, both laterally as well as extension and flexion without significant increase in pain. EXTREMITIES: The patient's lower extremities show deep tendon reflexes 2+ in the patellar, 1+ tendo-calcaneus tendons. Motor exam is approximately 4 on a scale of 5 with left dorsiflexion, extension, 5/5 on the right. Peripheral pulses are 1+. No peripheral edema is noted. Options were discussed with the patient. The patient's old chart was reviewed. His current medication regimen updated. Current review of systems updated today as well. We will proceed with a second in the series of lumbar epidural steroid injection today with fluoroscopic guidance. Risks were again discussed including, but not limited to bleeding, infection, possibility of epidural hematoma, subsequent neurologic compromise, dural puncture, headaches, spinal cord and/or nerve damage, side effects of steroid medication and poor results regarding pain control. The patient understands and wished to proceed. The patient will return to clinic in approximately 2 weeks for followup. He was counseled on return appointment, activity level and side effects to be aware of. The patient also has upcoming evaluation with his neurosurgeon. He will maintain this appointment as well later this month. DIAGNOSES: Lumbar radiculopathy with lumbar degenerative disk disease and lumbar post-laminectomy syndrome. PROCEDURE: Lumbar epidural steroid injection, translaminar approach L5-S1 level using C-arm fluoroscopic guidance under sterile prep and drape using local anesthetic. MEDICATION INJECTED: A total of 120 mg Depo-Medrol plus 10 mL of preservative-free normal saline and 2 mL of contrast. CONDITION AT DISCHARGE: Stable. The patient tolerated the procedure well, had no complications. EARLENE GÓMEZ MD DR: YOVANY/shahbaz JOB#: [id number] / [id number]
== END ==
LOC: PNCL 07:47
PROVIDERS: ATTEND Anesthesiology
DX: M51.16 Intervertebral disc disorders with radiculopathy, lumbar region (principal); M96.1 Postlaminectomy syndrome, not elsewhere classified
CPT/HCPCS: 62323; J1030; J1040; Q9965

== ENCOUNTER → 2019-11-14 | Outpatient (CLI) | payer OTHER ==
[~2019-11-14] MED LIST changes: +GADOTERATE 7.5 MMOL/15ML VIAL. IVP ONE; -IOHEXOL 180 MG/ML 10 ML VIAL. ONE; -methylPREDNISolone ACETATE 40 MG/ML VIAL. ONE; -methylPREDNISolone ACETATE 80 MG/ML VIAL. ONE
--- NOTE | 2019-11-14 15:09 | RAD ---
MRI of the lumbar spine without and with contrast 11/14/2019 CLINICAL HISTORY: Low back pain. History of previous lumbar spine surgery. TECHNIQUE: Unenhanced T1-weighted and T2-weighted sagittal and axial and inversion recovery sagittal images of the lumbar spine were obtained. After the intravenous administration of 20 cc of DOTAREM, enhanced T1-weighted sagittal and axial images of the lumbar spine were obtained. FINDINGS: Comparison study is dated 06/05/2019. Minimal S-shaped curvature of the thoracolumbar spine is seen. The patient is post laminectomy and fusion using pedicle screws and stabilizing rods at L4-5. The patient is post laminectomy at L3. Degenerative signal changes are seen involving all of the disks of the lumbar spine. Degenerative signal changes are seen within the marrow surrounding these discs. Loss of height of the L2-3, L4-5 and L5-S1 discs is noted. The conus medullaris is normal morphology, position, and signal characteristics. At the L1-2 disc space there is a mild generalized disc bulge. Degenerative changes are seen involving the facet joints bilaterally. These findings do not result in significant central spinal canal or neural foraminal stenosis. At the L2-3 disc space there is a mild generalized disc bulge. Superimposed on the disc bulge is a focal central disc herniation which extrudes slightly inferiorly. This measures 1.3 x 1.2 x 0.7 cm in craniocaudal, transverse and AP dimensions. This is new since the previous examination. Degenerative changes are seen involving the facet joints bilaterally. There is moderate ligamentum flavum hypertrophy bilaterally. Small facet joint effusions are seen bilaterally. These findings when combined result in moderate central spinal canal stenosis. No neural foraminal stenosis is seen. At the L3-4 disc space there is a mild generalized disc bulge. Degenerative changes are seen involving the facet joints bilaterally. These findings do not result in significant central spinal canal stenosis. Mild bilateral neural foraminal stenosis is seen. At the L4-5 disc space degenerative changes are seen involving the facet joints bilaterally. These findings do not result in significant central spinal canal or neural foraminal stenosis. At the L5-S1 disc space there is a mild generalized disc bulge. Degenerative changes are seen involving the facet joints bilaterally. There is moderate ligamentum flavum hypertrophy bilaterally. These findings when combined do not result in significant central spinal canal stenosis. Mild to moderate bilateral neural foraminal stenosis is seen. IMPRESSION: 1. Post laminectomy at L3 and post laminectomy and fusion at L4-5. 2. The changes of degenerative disc disease are seen throughout the lumbar spine. These findings result in moderate central spinal canal stenosis at L2-3. Mild bilateral neural foraminal stenosis is seen at L3-4. Mild to moderate bilateral neural foraminal stenosis is seen at L5-S1. At the L2-3 disc space a focal central disc herniation is seen which is new since previous study. This extrudes inferiorly and deforms anterior aspect of thecal sac. Electronically signed by: Mendoza Enrique MD (11/14/2019 3:06 PM) [id number]
== END | disposition home or self-care (01) ==
LOC: MRI 12:19
PROVIDERS: ATTEND Neurological Surgery
DX: M51.37 Other intervertebral disc degeneration, lumbosacral region (principal); M48.07 Spinal stenosis, lumbosacral region; Z98.1 Arthrodesis status
CPT/HCPCS: 36415; 72158; 82565; 84520; A9575

== ENCOUNTER → 2019-12-12 | Outpatient (CLI) | payer OTHER ==
[~2019-12-12] MED LIST changes: +DOCU100C28 PO; +FLUT9.9S NS; -GADOTERATE 7.5 MMOL/15ML VIAL. IVP ONE; +METH-38 PO; +OXYC-325 PO
[2019-12-12 14:58] LABS: BASO % 1 % (0-3); EOS # 0.3 x10^3/uL (0.0-0.7); EOS % 4 % (0-3); HEMATOCRIT 43.2 % (39.0-53.0); HEMOGLOBIN 14.9 g/dL (13.0-17.5); LYMPH # 2.9 x10^3/uL (1.0-4.8); LYMPH % 45 % (24-48); MEAN CORPUSCULAR HEMOGLOBIN 31 pg (25-35); MEAN CORPUSCULAR HGB CONC 35 g/dL (31-37); MEAN CORPUSCULAR VOLUME 90 fL (79-100); MONO # 0.7 x10^3/uL (0.0-1.1); MONO % 10 % (0-9); NEUT # 2.5 x10^3/uL (1.8-7.7); NEUT % 40 % (31-73); PLATELET COUNT 164 x10^3/uL (140-400); RED BLOOD COUNT 4.82 x10^6/uL (4.30-5.70); RED CELL DISTRIBUTION WIDTH 15.3 % (11.5-14.5); WHITE BLOOD COUNT 6.4 x10^3/uL (4.0-11.0)
--- NOTE | 2019-12-12 14:58 | EKG ---
[facility] [address] [place] [address] Test Date: 2019-12-12 Test Time: 14:57:32 Pat Name: STONE PIERSON Department: Room: Gender: M Scooper: CHRISTY : 1955 Requested By: PANCHO GONZALES Order Number: [id number] Reading MD: Teodoro Romano Measurements Intervals [place] Rate: 64 P: 34 IL: 162 QRS: 17 QRSD: 86 T: 34 QT: 378 QTc: 394 Interpretive Statements SINUS RHYTHM NONSPECIFIC ST-T WAVE CHANGES. Electronically Signed On 12-15-2019 11:33:23 HOT MOLDER by Teodoro Romano
[2019-12-12 15:07] LABS: PROTHROMBIN TIME PATIENT 12.9 SEC (11.7-14.0)
[2019-12-12 15:13] LABS: ALBUMIN/GLOBULIN RATIO 1.3 (1.0-1.7); CREATININE 1.1 mg/dL (0.7-1.3); GFR 67.2; POTASSIUM 4.1 mmol/L (3.5-5.1); TOTAL BILIRUBIN 0.5 mg/dL (0.2-1.0); TOTAL PROTEIN 7.1 g/dL (6.4-8.2)
--- NOTE | 2019-12-12 19:19 | RAD ---
CHEST PA LATERAL History: Preoperative evaluation. Discectomy of the spine scheduled. Comparison: 01/07/2019 two-view chest x-ray exam. Findings: Frontal and lateral views of the chest were obtained. Postoperative cervical spine fusion noted. The cardiomediastinal silhouette is normal. Pulmonary vasculature is normal. The lungs are clear. No pleural effusion or pneumothorax is seen. There is no acute bone abnormality. IMPRESSION: No acute cardiopulmonary process. Electronically signed by: Jossue Elizalde MD (12/12/2019 7:16 PM) [id number]
[2019-12-13 00:07] LABS: HEMOGLOBIN A1C 5.5 % (4.8-5.6)
== END | disposition home or self-care (01) ==
LOC: SURGPAT 14:25
PROVIDERS: ATTEND Neurological Surgery
DX: Z01.818 Encounter for other preprocedural examination (principal); M48.061 Spinal stenosis, lumbar region without neurogenic claudication; M51.16 Intervertebral disc disorders with radiculopathy, lumbar region
CPT/HCPCS: 36415; 71046; 80053; 83036; 85025; 85610; 85730; 87641; 93005

== ENCOUNTER 2019-12-16 07:24 | Inpatient (IN) | payer OTHER ==
[~2019-12-16] VITALS: Ht 180.3 cm; Wt 109.0 kg
[~2019-12-16 07:24] MED LIST changes: +BACITRACIN 50,000 UNIT in IV NORMAL SALINE 1000ML BAG 1,000 ML IRR ONE; +BUPIVACAINE MPF 0.5% 30 ML VIAL. ONE; -DOCU100C28 PO; +GELATIN SPONGE SIZE 100. ONE; +HYDROmorphone 2 MG/ML VIAL IV PRN; +LIDOCAINE 1%/EPI 1:100,000 20 ML VIAL. ONE; -METH-38 PO; +MORPHINE SULFATE 2 MG/ML VIAL. IV PRN; +ONDANSETRON PF 4 MG/2 ML VIAL. IV PRN; -OXYC-325 PO; +PROCHLORPERAZINE 10 MG/2 ML VIAL. IV PRN; +THROMBIN TOPICAL 20,000 UNIT SPRAY.SYRN KIT TP ONE; +fentaNYL PF VIAL 100 MCG/2 ML VIAL IV PRN
[2019-12-16] MEDS ORDERED: PROPOFOL 20 ML IV ONE (07:57)
[2019-12-16] MEDS ORDERED: ONDANSETRON PF 4 MG/2 ML VIAL. ONE (07:57)
[2019-12-16] MEDS ORDERED: DEXAMETHASONE SOD PHOS 20 MG/5 ML VIAL. ONE (07:57)
[2019-12-16] MEDS ORDERED: PROPOFOL 50 ML IV ONE ×2 (07:57→09:58)
[2019-12-16] MEDS ORDERED: ROCURONIUM 50 MG/5 ML VIAL. ONE (07:57)
[2019-12-16] MEDS ORDERED: LIDOCAINE 2% PF 5 ML VIAL. ONE (07:57)
[2019-12-16] MEDS ORDERED: 0.9 % SODIUM CHLORIDE 20 ML VIAL. IJ ONE (07:57)
[2019-12-16] MEDS ORDERED: REMIFENTANIL 2 MG VIAL. IV ONE (07:58)
[2019-12-16] MEDS ORDERED: PHENYLEPHRINE 10 MG/ML VIAL. ONE (07:58)
[2019-12-16] MEDS ORDERED: MIDAZOLAM HCL/PF 2 MG/2 ML VIAL. ONE (07:58)
[2019-12-16] MEDS ORDERED: MINERAL OIL/PETROLATUM,WHITE OPHTH OINT 3.5GM TUBE. ONE (07:59)
[2019-12-16] MEDS: IV RINGERS,LACTATED 1000ML 1,000 ML IV SCH ×2 (08:11→11:20)
[2019-12-16] MEDS ORDERED: ePHEDrine PF IN SALINE 50 MG/10 ML SYRINGE. IV ONE (10:24)
[2019-12-16] MEDS ORDERED: GLYCOPYRROLATE 1 MG/5 ML VIAL. ONE (10:24)
[2019-12-16] MEDS ORDERED: DESFLURANE > 120 MINUTES IH ONE (10:42)
[2019-12-16] MEDS ORDERED: NEOSTIGMINE METHYLSULFATE 5 MG/5 ML SYRINGE. ONE (10:43)
[2019-12-16] MEDS ORDERED: diphenhydrAMINE HCL 25 MG CAPSULE PO PRN (11:15)
[2019-12-16] MEDS ORDERED: NALOXONE 0.4 MG/ML VIAL. IV PRN ×2 (11:15)
[2019-12-16] MEDS ORDERED: 0.9 % SODIUM CHLORIDE 10 ML DISP.SYRIN. IV PRN (11:15)
[2019-12-16] MEDS ORDERED: MAG HYDROX/ALUMINUM HYD/SIMETH 30 ML ORAL.SUSP PO PRN (11:15)
[2019-12-16] MEDS ORDERED: ACETAMINOPHEN 325 MG TABLET. PO PRN (11:15)
[2019-12-16] MEDS ORDERED: diphenhydrAMINE 50 MG/ML VIAL IV PRN (11:15)
[2019-12-16] MEDS ORDERED: CALCIUM CARBONATE 500 MG TAB.CHEW PO PRN (11:15)
[2019-12-16] MEDS ORDERED: ZOLPIDEM 5 MG TABLET. PO PRN (11:15)
[2019-12-16] MEDS ORDERED: fentaNYL PF VIAL 100 MCG/2 ML VIAL IVP PRN ×2 (11:15)
[2019-12-16] MEDS ORDERED: oxyCODONE/APAP 5/325 1 TAB TABLET PO PRN (11:15)
[2019-12-16] MEDS ORDERED: ONDANSETRON PF 4 MG/2 ML VIAL. IVP PRN (11:15)
--- NOTE | 2019-12-16 11:20 | PDOC ---
BRIEF OPERATIVE NOTE Date: Dec 16, 2019 Pre-Op Diagnosis lumbar disk herniation L2-3 with stenosis and radiculopathy Post-Op Diagnosis same Procedure Performed expansion of L2-3 laminectomy, L2-3 discectomy Anesthesia Type: General Blood Loss 20mL Specimens Obtained disk and decompression Findings prominent stenosis largely due to disk herniation L2-3, neuromonitoring at least baseline throughout procedure Complications none apparent PANCHO GONZALES MD Dec 16, 2019 11:20
[2019-12-16] MEDS ORDERED: OXYC-325 PO (11:35)
[2019-12-16] MEDS ORDERED: DOCU100C28 PO (11:36)
[2019-12-16] MEDS ORDERED: METH-38 PO (11:36)
[2019-12-16] MEDS ORDERED: SUMAtriptan SUCCINATE 100 MG TABLET PO PRN (11:45)
[2019-12-16 12:15] VITALS: BP 134/51
[2019-12-16] MEDS ORDERED: oxyCODONE/APAP 5/325 1 TAB TABLET PO ONE (12:15)
[2019-12-16] MEDS ORDERED: IV NORMAL SALINE 1000ML BAG 1,000 ML IV SCH (13:00)
[2019-12-16] MEDS ORDERED: GABAPENTIN 400 MG CAPSULE. PO SCH (14:00)
[2019-12-16] MEDS ORDERED: METHOCARBAMOL 750 MG TABLET PO SCH (14:00)
[2019-12-16] MEDS ORDERED: CALCIUM CARB/VIT D3 500/200 TABLET. PO SCH (17:00)
[2019-12-16] MEDS ORDERED: FERROUS SULFATE 325 MG TABLET. PO SCH (17:00)
[2019-12-16] MEDS ORDERED: NON FORMULARY ITEM (Melatonin 10 MG) PO SCH (21:00)
[2019-12-16] MEDS ORDERED: DOCUSATE SODIUM 100 MG CAPSULE. PO SCH (21:00)
[2019-12-16] MEDS ORDERED: SENNOSIDES/DOCUSATE 8.6/50MG TABLET. PO SCH (21:00)
[2019-12-16] MEDS ORDERED: AMITRIPTYLINE HCL 25 MG TABLET. PO SCH (21:00)
[2019-12-17] MEDS ORDERED: MULTIVITAMIN with MINERAL TABLET. PO SCH (09:00)
[2019-12-17] MEDS ORDERED: FLUTICASONE 50MCG/NASAL SPRAY 16GM BOTTLE. NS SCH (09:00)
[2019-12-17] MEDS ORDERED: CHOLECALCIFEROL (VITAMIN D3) 5,000 UNIT CAPSULE PO SCH (09:00)
[2019-12-17] MEDS ORDERED: CETIRIZINE HCL 10 MG TABLET. PO SCH (09:00)
--- NOTE | 2019-12-17 15:07 | PATHOLOGY ---
[facility] Accession Number: [id number] . 01 Material submitted: . vertebral column - LUMBAR DECOMPRESSION AND DISC . 01 Clinical history: . Lumbar herniated disc, stenosis, radiculopathy . 02 Diagnosis: Segments of fibrocartilaginous and skeletal muscle tissue and bone, lumbar disc and decompression: - Degenerative changes of fibrocartilaginous tissue. . (JPM:mitesh; 12/17/2019) QMS 12/17/2019 1233 Local . 02 Comment: There is no evidence of an acute inflammatory process or malignancy. . 02 Electronically signed: . Alpesh Marinelli MD, Pathologist NPI- [id number] . 01 Gross description: . The specimen is received in formalin, labeled "Juarez Yoder, lumbar decompression and disc". Received are multiple segments of pink-jackman, rubbery and gritty fibrous tissue admixed with fragments of bone measuring 4.2 x 3.8 x 1.4 cm in aggregate dimensions. The specimen is submitted representatively in cassette A1, following decalcification. ([facility]; 12/16/2019) QAC/QAC 12/17/2019 1232 Local . 02 Pathologist provided ICD-10: M51.26, M99.59, M54.10 . 02 CPT . 650286, [id number] Specimen Comment: A courtesy copy of this report has been sent to [phone], [phone] Specimen Comment: [id number] Specimen Comment: Report sent to / DR QUEEN Performed at: 01 [facility] [address], [place], [place] [id number] MD Tyree Correa MD Phone: [phone] Performed at: 02 [facility] [address] [place], [place] [id number] MD Alpesh Marinelli MD Phone: [phone]
--- NOTE | 2019-12-17 15:18 | OP ---
DATE OF SURGERY: 12/16/2019 SURGEON: Mckay Gonzales MD BAG LOADER: Maryuri PREOPERATIVE DIAGNOSES: Lumbar disk herniation with lumbar stenosis and lumbar radiculopathy. POSTOPERATIVE DIAGNOSES: Lumbar disk herniation with lumbar stenosis and lumbar radiculopathy. PROCEDURE: Extension of prior lumbar 2-3 laminectomy with lumbar 2-3 diskectomy Intraoperative use of neuro monitoring and intraoperative use of microscope. ANESTHESIA: General. COMPLICATIONS: None intraprocedurally. INDICATIONS FOR THE PROCEDURE: The patient is a 64-year-old gentleman with low back and lower extremity pain localized to a new disk herniation at lumbar 2-3. He has been refractory to nonsurgical treatments. Please refer to the patient's chart for additional details. DESCRIPTION OF PROCEDURE: After informed consent was obtained, the patient was brought to the operating room and placed under general anesthesia. Ancef was utilized as a prophylactic antibiotic. He was placed in the prone position on the Isai table. All pressure points were checked and padded appropriately. The patient had a previous lumbar incision. Appropriate location at lumbar 2-3 was localized with fluoroscopy prior to the initiation of the procedure. Lumbar region was prepped and draped in the usual sterile fashion. The cephalad portion of this prior incision was reopened with a 10 blade scalpel centered over the region of lumbar 2-3, electrocautery was utilized to dissect the avascular midline to the remainder of the spinous processes of lumbar 2 and dissection was carried out bilaterally across the partial lamina at lumbar 2 in the region of lumbar 2-3 junction. Level was again verified with fluoroscopy and a laminectomy was performed extending from the previous partial laminectomy of lumbar 2 cephalad, primarily on the left side, which shows location of the patient's lower extremity pain. Laminectomy was carried to some degree to the right side as well at this location. Scar tissue was encountered and this was gently dissected free from the thecal sac with a blunt nerve hook as well as a Dot. Lateral recess of the lumbar 2-3 junction was decompressed with a Kerrison rongeur. Significant scar tissue and residual ligament was noted. Once this was complete, the thecal sac and the adjacent nerve root was gently retracted medially and a prominent annulus was encountered. A 10 blade scalpel was utilized to create a small incision in the annulus at lumbar 2-3 and disk material emerged under pressure. This was gently teased posterolaterally with a blunt nerve hook as well as a Dot. Disk material was removed in a piecemeal fashion with pituitary rongeur. Upon completion of the diskectomy, the annulus was noted to be flat and the adjacent neural elements were noted to be very well decompressed. This was verified with direct visualization as well as gentle palpation with a [place]. Upon completion of decompression and diskectomy, the wound was generously irrigated with antibiotic irrigation. Pristine hemostasis was achieved with FloSeal, cottonoids irrigation and some use of bipolar electrocautery. The muscle and fascia were then reapproximated with 0 Vicryl in a simple interrupted fashion. Subcutaneous tissues reapproximated with 2-0 Vicryl in interrupted inverted fashion and the skin was reapproximated with 4-0 Vicryl in a running subcuticular fashion. Mastisol and Steri-Strips were applied and the wound was dressed with Telfa and Tegaderm. At the end of procedure, all needle and sponge counts were correct. Neuro monitoring remained at least baseline throughout the entire procedure. There were no intraprocedural complications apparent. The patient was then extubated in the operating room and taken to recovery in stable condition. MCKAY GONZALES MD DR: JACKSON/shahbaz JOB#: [id number] / [id number]
== END 2019-12-16 13:42 | disposition home or self-care (01) | DRG 520 ==
LOC: OPSVCIP 07:24
PROVIDERS: ADMIT Neurological Surgery; ATTEND Neurological Surgery
PROC: 01NB0ZZ Release Lumbar Nerve, Open Approach (ICD-10-PCS; 2019-12-16)
PROC: 0SB20ZZ Excision of Lumbar Vertebral Disc, Open Approach (ICD-10-PCS; 2019-12-16)
PROC: 00NY0ZZ Release Lumbar Spinal Cord, Open Approach (ICD-10-PCS; principal; 2019-12-16 08:30)
DX: M48.061 Spinal stenosis, lumbar region without neurogenic claudication (principal); M51.16 Intervertebral disc disorders with radiculopathy, lumbar region
CPT/HCPCS: 36415; 86850; 86900; 86901; A7015; J0171; J0696; J1100; J2001; J2250; J2405; J2704; J2710; J3490; J7030; J7120

== ENCOUNTER → 2021-03-07 | Outpatient (CLI) | payer OTHER ==
[~2021-03-07] MED LIST changes: -BACITRACIN 50,000 UNIT in IV NORMAL SALINE 1000ML BAG 1,000 ML IRR ONE; -BUPIVACAINE MPF 0.5% 30 ML VIAL. ONE; +DOCU100C28 PO; -GELATIN SPONGE SIZE 100. ONE; -HYDROmorphone 2 MG/ML VIAL IV PRN; -LIDOCAINE 1%/EPI 1:100,000 20 ML VIAL. ONE; +MELA3TAB4 PO; -MELA3TAB56 PO; +METH-38 PO; -MORPHINE SULFATE 2 MG/ML VIAL. IV PRN; -ONDANSETRON PF 4 MG/2 ML VIAL. IV PRN; +OXYC-325 PO; -PROCHLORPERAZINE 10 MG/2 ML VIAL. IV PRN; -THROMBIN TOPICAL 20,000 UNIT SPRAY.SYRN KIT TP ONE; -fentaNYL PF VIAL 100 MCG/2 ML VIAL IV PRN
--- NOTE | 2021-03-07 15:57 | KCIC ---
MR LUMBAR SPINE WO [id number] Date: 03/07/2021 1:15 PM Indication: LUMBOSACRAL RADICULOPATHY. Discectomy after last MR at [facility]. Multiple lumbar surgeries. Low back pain since November. New right leg numbness since last surgery. Comparison: MRI 11/14/2019. Technique: Multi-planar multi-weighted magnetic resonance imaging of the lumbar spine was performed w ithout intravenous contrast using the standard lumbar spine protocol. FINDINGS: Postsurgical changes of posterior instrumentation at L4-5 on the left. Straightening of the lumbar lordosis. No acute fracture. Moderate multilevel degenerative disc desicc ation and disc height loss. Degenerative endplate edema at L2-3 on the left and L3-4 on the right. The conus terminates at a normal level. No abnormal signal is seen within the visualized distal spina l cord. Redundancy of the nerve roots of the cauda equina proximal to L3-4. Left renal cyst. T12-L1: No disc bulge. No facet arthropathy. No significant spinal stenosis or neural foraminal narro wing. L1-L2: Disc bulge. Mild facet arthropathy. No significant spinal stenosis or neural foraminal narrowi ng L2-L3: Posterior decompression. Previously seen inferiorly migrating central protrusion has significa ntly improved. No spinal canal stenosis. Moderate bilateral lateral recess narrowing. Moderate bilate ral neural foraminal narrowing. Moderate right and mild left facet arthropathy. L3-L4: Moderate facet arthropathy. Increased disc bulge. Moderate to severe spinal canal stenosis, pr ogressed from the prior. Severe bilateral neural foraminal, progressed from the prior. L4-L5: Posterior decompression. No spinal canal stenosis. Mild to moderate neuroforaminal narrowing. L5-S1: Disc bulge. Mild facet arthropathy. No significant spinal stenosis. Severe right and moderate left neural foraminal narrowing. IMPRESSION: Moderate to severe spinal canal stenosis at L3-4 has progressed from the prior exam. Degenerative carmen nges at the remaining levels as above. Electronically signed by: Andriy Williamson MD (03/07/2021 3:55 PM) [id number]
== END ==
LOC: KCIC MRI 12:46
PROVIDERS: ATTEND Family Medicine
DX: M47.27 Other spondylosis with radiculopathy, lumbosacral region (principal); M48.07 Spinal stenosis, lumbosacral region
CPT/HCPCS: 72148

== ENCOUNTER → 2021-03-23 | Outpatient (CLI) | payer OTHER ==
[~2021-03-23] MED LIST changes: +IOHEXOL 180 MG/ML 10 ML VIAL. ONE; +methylPREDNISolone ACETATE 40 MG/ML VIAL. ONE; +methylPREDNISolone ACETATE 80 MG/ML VIAL. ONE
--- NOTE | 2021-03-23 08:46 | PDOC4 ---
PROCEDURE Procedure Patient was consented for lumbar epidural steroid injection. Risks were dis cussed including but not limited to: Bleeding, infection, possibility of epidural hematoma and subsequent neurological compromise, dural puncture, headaches, spinal cord and/or nerve damage, side effects of steroid medication, and poor results regarding pain control. Patient understands and wished to proceed. Procedure is lumbar epidural steroid injection under local anesthetic using sterile prep and drape at the L3-4 level using C-arm fluoroscopic guidance in both AP and lateral views medications injected is 120 mg Depo-Medrol +10mL preservative-free normal saline and 2 mL contrast- condition at discharge is stable patient tolerated procedure well had no complications. EARLENE GÓMEZ MD Mar 23, 2021 08:46
--- NOTE | 2021-03-23 08:49 | PDOC ---
Progress Note - Pain Clinic Date of Service: DOS: DATE: 03/23/21 TIME: 08:46 Diagnosis: Dx: Lumbar radiculopathy with lumbar degenerative disc disease and lumbar postlaminectomy syndrome Cervical radiculopathy with cervical degenerative disease and cervical postlaminectomy syndrome History or Present Illness: HPI: 65-year-old male returns for follow-up status post lumbar epidural steroid injections most recently October 2019 patient had surgery in November of that year with L3-4 discectomy as well as L45 previous fusion patient had MRI scan on March 07, 2021 showing postsurgical changes moderate to severe spinal canal stenosis L3-4 progressed from prior exam degenerative changes remain the same 2345 and 5 1. Patient reports pain was doing much better after surgery however pain is returning now in the right side in the low back and radiated to the anterior thigh medial thigh especially in the groin and into the medial knee worse with walking standing changing positions better with sitting or laying down generally is not awakening from sleep at night is fairly comfortable sitting for prolonged periods as well patient reports his pain is 8 on scale 10 is worse over the past week 6 on average 5 its least is a 5 today while sitting patient reports that sharp and stabbing can be radiating constant shooting in the right lower extremity as noted. Patient reports no significant pain on the left side over left lower extremity. Patient reports no new motor or sensory deficits no new bowel or bladder incontinence or other complaints. Physical Exam: VS: Blood pressure is 145/83 pulse 78 respirations 18 temperature 98.5 F height is 5 feet 11 inches weight is 234 pounds PE: PHYSICAL EXAMINATION: GENERAL: The patient is awake, alert, oriented, appropriate, very pleasant demeanor HEENT: Shows normocephalic, atraumatic. Extraocular movements are intact and symmetrical. Oral cavity: Mucous membranes moist and pink. Dentition is intact. NECK: Shows anterior throat supple without palpable lymphadenopathy noted. Swallow reflex symmetrical. CHEST: Shows normal on inspection. Breath sounds are clear bilaterally, no rales rhonchi wheezes auscultated. HEART: Shows S1, S2 clear. No murmurs auscultated. ABDOMEN: Soft, nontender, nondistended, obese. No palpable organomegaly is noted. No rebound or guarding demonstrated. BACK: Shows spine grossly in the midline. Normal-appearing cervical lordotic curvature. There is slightly increased thoracic kyphosis, some minor flattening of the lumbar lordotic curvature. Well-healed midline surgical scar is noted. Lumbar paraspinous muscles show symmetrical on inspection, on palpation shows some moderate tenderness diffusely throughout the upper, middle and lower distribution of the paraspinous muscles without specific trigger points, without radiation of pain. The patient has good rotational motion of the lumbar spine, both laterally as well as extension and flexion without significant difficulty. No tenderness over the spinous processes, sacrum or sacroiliac regions. EXTREMITIES: Lower extremities show deep tendon reflexes 2+ in the patellar and tendo calcaneus tendons. Motor exam is 4 on a scale of 5 with right dorsiflexion, extension, quadriceps and hamstring flexion and 5/5 on the left. Peripheral pulses are 1+ posterior tibial. No peripheral edema is noted bilaterally. Lower extremities are warm and dry to touch, equal in color and appearance. Straight leg raise noted to be positive on the right about 40 degrees, left side is negative. Gaenslen's and Oral's maneuvers are negative bilaterally as well. SKIN: Shows warm and dry, good turgor. No edema. No sores, rashes or bruising throughout. Procedure: Procedure: Options were discussed with the patient. Patient's old chart was reviewed his his current medication regimen updated current review of systems updated today as well. We will proceed with lumbar epidural steroid injection stable fluoroscopic guidance. Risks were discussed including but not limited to: Bleeding, infection, possibility of epidural hematoma and subsequent neurological compromise, dural puncture, headaches, spinal cord and/or nerve damage, side effects of steroid medication, and poor results regarding pain control. Patient understands and wished to proceed. Patient will return to the clinic in approximate 2 weeks for follow-up, was counseled as to return appoi ntment activity level and side effects to be aware of. Medication Injected: Med Injected: Procedure is lumbar epidural steroid injection under local anesthetic using sterile prep and drape at the L3-4 level using C-arm fluoroscopic guidance in both AP and lateral views medications injected is 120 mg Depo-Medrol +10mL preservative-free normal saline and 2 mL contrast- condition at discharge is stable patient tolerated procedure well had no complications. Condition at Discharge: Condition at Discharge: Condition at discharge stable, patient tolerated the procedure well and had no complications. EARLENE GÓMEZ MD Mar 23, 2021 08:49
== END | disposition home or self-care (01) ==
LOC: PNCL 08:01
PROVIDERS: ATTEND Anesthesiology
DX: M51.16 Intervertebral disc disorders with radiculopathy, lumbar region (principal); M50.10 Cervical disc disorder with radiculopathy, unspecified cervical region; M96.1 Postlaminectomy syndrome, not elsewhere classified; I10 Essential (primary) hypertension; G47.30 Sleep apnea, unspecified; K21.9 Gastro-esophageal reflux disease without esophagitis; M19.90 Unspecified osteoarthritis, unspecified site; N40.0 Benign prostatic hyperplasia without lower urinary tract symptoms; Z79.899 Other long term (current) drug therapy; Z98.890 Other specified postprocedural states; Z87.891 Personal history of nicotine dependence; Z82.49 Family history of ischemic heart disease and other diseases of the circulatory system
CPT/HCPCS: 62323; J1030; J1040; Q9965

== ENCOUNTER → 2021-04-06 | Outpatient (CLI) | payer OTHER ==
--- NOTE | 2021-04-06 09:47 | PDOC ---
Progress Note - Pain Clinic Date of Service: DOS: DATE: 04/06/21 TIME: 09:44 Diagnosis: Dx: Lumbar radiculopathy with lumbar degenerative disc disease and lumbar postlaminectomy syndrome Cervical radiculopathy with cervical degenerative disease and cervical postlaminectomy syndrome History or Present Illness: HPI: 65-year-old male returns to follow-up status post lumbar epidural straight injection x1 last seen March 28, 2021. Patient reports about 25% improvement in his low back and right lower extremity still some pain in the back and the right leg with walking and standing for prolonged periods but doing much better than it was patient reports is tingling pain in the low back radiating the right lower extremity posterior gluteus lateral thigh anterior thigh medial thigh pa tient reports is an 8 on scale 10 is worse over the past week 6 on average for its least and is a 6 today patient reports he was doing much better with increased activity doing walking greater distances doing work activities household activities traveling with some boating as well which was performed with reasonable comfort. Patient reports is not awakening from sleep at this time reports no new motor or sensory deficits no new bowel or bladder incontinence or other complaints. Physical Exam: VS: Blood pressure is 142/74 pulse 78 respirations 18 temperature 90.7 F height 5 feet 11 inches weight 235 pounds PE: PHYSICAL EXAMINATION: GENERAL: The patient is awake, alert, oriented, appropriate, very pleasant in demeanor HEENT: Shows normocephalic, atraumatic. Extraocular movements are intact and symmetrical. Patient wearing eyeglasses oral cavity: Mucous membranes moist and pink. Dentition is intact. NECK: Shows anterior throat supple without palpable lymphadenopathy noted. Swallow reflex symmetrical. CHEST: Shows normal on inspection. Breath sounds are clear bilaterally. HEART: Shows S1, S2 clear. No murmurs auscultated. ABDOMEN: Soft, nontender, nondistended, obese. BACK: Shows spine grossly in the midline. Normal-appearing cervical lordotic curvature. There is slightly increased thoracic kyphosis, some minor flattening of the lumbar lordotic curvature. Well-healed surgical scar is noted in the midline. Lumbar paraspinous muscles show symmetrical on inspection, on palpation shows some moderate tenderness diffusely throughout the upper, middle and lower distribution of the paraspinous muscles without specific trigger points, without radiation of pain. The patient has good rotational motion of th e lumbar spine, both laterally as well as extension and flexion without significant difficulty. No tenderness over the spinous processes, sacrum or sacroiliac regions. EXTREMITIES: Lower extremities show deep tendon reflexes 2+ in the patellar and tendo calcaneus tendons. Motor exam is 4 on a scale of 5 with right dorsiflexion, extension, quadriceps and hamstring flexion and 5/5 on the left. Peripheral pulses are 1+ posterior tibial. No peripheral edema is noted bilaterally. Lower extremities are warm and dry. SKIN: Shows warm and dry, good turgor. No edema. No sores, rashes or bruising throughout. Procedure: Procedure: Options were discussed with the patient. Patient chart reviews her current medication regimen updated current review of systems updated today as well. We will proceed with a second in a series lumbar epidural steroid injection stable fluoroscopic guidance. Risks were discussed including but not limited to: Bleeding, infection, possibility of epidural hematoma and subsequent neurological compromise, dural puncture, headaches, spinal cord and/or nerve damage, side effects of steroid medication, and poor results regarding pain control. Patient understands and wished to proceed. She will return to clinic in approximate 2 weeks for follow-up, was counseled return appointment, activity level, and side effects to be aware. Medication Injected: Med Injected: Procedure is lumbar epidural steroid injection under local anesthetic using sterile prep and drape at the L3-4 level using C-arm fluoroscopic guidance in both AP and lateral views medications injected is 120 mg Depo-Medrol +10mL preservative-free normal saline and 2 mL contrast- condition at discharge is stable patient tolerated procedure well had no complications. Condition at Discharge: Condition at Discharge: Condition at discharge stable, patient alert procedure well had no complications. EARLENE GÓMEZ MD Apr 06, 2021 09:47
--- NOTE | 2021-04-06 09:47 | PDOC4 ---
PROCEDURE Procedure Patient is consented for lumbar epidural steroid injection. Risks were disc ussed including but not limited to: Bleeding, infection, possibility of epidural hematoma and subsequent neurological compromise, dural puncture, headaches, spinal cord and/or nerve damage, side effects of steroid medication, and poor results regarding pain control. Patient understands and wished to proceed. Procedure is lumbar epidural steroid injection under local anesthetic using sterile prep and drape at the L3-4 level using C-arm fluoroscopic guidance in both AP and lateral views medications injected is 120 mg Depo-Medrol +10mL preservative-free normal saline and 2 mL contrast- condition at discharge is stable patient tolerated procedure well had no complications. EARLENE GÓMEZ MD Apr 06, 2021 09:47
== END | disposition home or self-care (01) ==
LOC: PNCL 09:04
PROVIDERS: ATTEND Anesthesiology
DX: M51.16 Intervertebral disc disorders with radiculopathy, lumbar region (principal); M96.1 Postlaminectomy syndrome, not elsewhere classified; M50.10 Cervical disc disorder with radiculopathy, unspecified cervical region; I10 Essential (primary) hypertension; K21.9 Gastro-esophageal reflux disease without esophagitis; M19.90 Unspecified osteoarthritis, unspecified site; G47.30 Sleep apnea, unspecified; Z79.899 Other long term (current) drug therapy; Z98.890 Other specified postprocedural states; Z87.891 Personal history of nicotine dependence; Z82.49 Family history of ischemic heart disease and other diseases of the circulatory system
CPT/HCPCS: 62323; J1030; J1040; Q9965

== ENCOUNTER → 2022-03-09 | Outpatient (CLI) | payer OTHER ==
[~2022-03-09] MED LIST changes: +CYCL10TA19 PO; -CYCL10TA2 PO; -IOHEXOL 180 MG/ML 10 ML VIAL. ONE; -methylPREDNISolone ACETATE 40 MG/ML VIAL. ONE; -methylPREDNISolone ACETATE 80 MG/ML VIAL. ONE
--- NOTE | 2022-03-09 11:37 | KCIC ---
EXAM: Cervical spine MRI without contrast. HISTORY: Radiculopathy. TECHNIQUE: Multiplanar, multisequence magnetic resonance imaging of the cervical spine was performed without contrast. COMPARISON: 02/16/2016. FINDINGS: There is instrumented anterior spinal fusion and interbody fusion at C6-C7. There is multil evel endplate remodeling. There is no suspicious osseous lesion. There is no acute or subacute fractu re. There is deformation of the spinal cord at multiple levels due to central canal stenosis, describ ed in detail below. No spinal cord edema or myelomalacia is seen. At C2-C3, there is a right lateral recess to extra foraminal disc protrusion and osteophyte complex s uperimposed on endplate remodeling. There is mild bilateral facet arthropathy. There is uncovertebral arthropathy. There is moderate right foraminal stenosis. At C3-C4, there is a disc bulge and endplate osteophytosis. There is moderate to severe right greater than left facet arthropathy. There is right uncovertebral arthropathy. There is severe right and mod erate left foraminal stenosis. There is mild central canal stenosis measuring 8.4 mm in anterior post erior dimension. At C4-C5, there is a disc bulge and endplate osteophytosis. There is moderate bilateral facet arthrop athy. There is right uncovertebral arthropathy. There is severe right and moderate left foraminal hilda nosis. There is deformation of the spinal cord and moderate central canal stenosis measuring 7.3 mm i n anterior posterior dimension. At C5-C6, there is a disc bulge and endplate osteophytosis. There is moderate bilateral facet arthrop athy. There is bilateral uncovertebral arthropathy. There is severe bilateral foraminal stenosis. The re is mild central canal stenosis measuring 8.1 mm in anterior posterior dimension. At C6-C7, there is instrumented fusion. There is left posterior lateral predominant endplate remodeli ng. There is mild bilateral facet arthropathy. There is left uncovertebral arthropathy. There is mode rate left foraminal stenosis. There is mild central canal stenosis measuring 8.6 mm in anterior poste rior dimension. At C7-T1, there is a left lateral recess to foraminal disc protrusion superimposed on a disc bulge an d endplate osteophytosis. There is moderate left greater than right facet arthropathy. There is left greater than right uncovertebral arthropathy. There is moderate right and severe left foraminal steno sis. There is slight deformation of the spinal cord and mild central canal stenosis measuring 9.1 mm in anterior posterior dimension. IMPRESSION: 1. Multilevel degenerative change involving the cervical spine, described in detail above. This resul ts in significant stenosis at the aforementioned levels. These changes are very similar compared to t he prior exam, allowing for differences in imaging technique. 2. Deformation of the spinal cord at multiple level due to central canal stenosis. No spinal cord abel ma or myelomalacia is seen. 3. Instrumented fusion at C6-C7. Electronically signed by: Ruth Henao MD (03/09/2022 11:35 AM) [facility]
--- NOTE | 2022-03-09 12:28 | KCIC ---
EXAM: Lumbar spine MRI without contrast. HISTORY: Spinal stenosis. TECHNIQUE: Multiplanar, multisequence magnetic resonance imaging of the lumbar spine was performed wi thout contrast. COMPARISON: 03/07/2021 FINDINGS: There is instrumented left posterior spinal fusion and laminectomy decompression at L4-L5. There is mild lumbar scoliosis. There is minimal retrolisthesis of L2 on L3. There is multilevel endp late remodeling with disc space narrowing and osteophytosis. This is most severe along the right aspe ct of L3-L4. There are multiple endplate Schmorl's nodes. There is edema within the right L4 pedicle, likely degenerative or due to a stress reaction. There is no acute or subacute fracture. The conus t erminates at L1. There is a simple left renal cyst. Follow-up is not routinely performed for simple c ysts. At L1-L2, there is and endplate remodeling. There is minimal central canal stenosis. At L2-L3, there is a broad-based left lateral recess to extra foraminal disc protrusion and osteophyt e complex and broad-based right foraminal to extra foraminal disc protrusion and osteophyte complex. These are superimposed on a disc bulge and left lateral predominant endplate osteophytosis. There is mild retrolisthesis. There is severe right and mild left facet arthropathy. There is [id number] bilateral foraminal stenosis. There is mild to moderate central canal stenosis and crowding of the n erve roots despite partial laminectomy changes. At L3-L4, there are bilateral posterior lateral disc osteophyte complexes and slight superior disc ex trusions superimposed on a right lateral predominant disc bulge and endplate osteophytosis. There is mild bilateral facet arthropathy. There are laminectomy changes. There is severe left greater than ri ght foraminal stenosis with effacement of the exiting left greater than right L3 nerve roots. There i s moderate central canal stenosis and crowding of the nerve roots despite laminectomy changes. At L4-L5, there is instrumented left posterior spinal fusion and laminotomy decompression. There is a bridging left posterior lateral endplate osteophyte superimposed on endplate osteophytosis. There is mild bilateral facet arthropathy. There is mild right and severe left foraminal stenosis. There is l aminectomy decompression of the thecal sac. There is clumping of the nerve roots due to the sequela o f arachnoiditis. At L5-S1, there are bilateral foraminal to extra foraminal disc protrusions superimposed on a disc bu lge and endplate remodeling. There is moderate bilateral facet arthropathy. There is severe bilateral foraminal stenosis with effacement of the exiting L5 nerve roots. There is clumping and peripheral d eviation of the nerve roots due to the sequela of arachnoiditis. IMPRESSION: 1. Instrumented left posterior spinal fusion at L4-L5 and laminectomy changes at L2-L3, L3-L4 and L4- L5. 2. Multilevel degenerative change involving the lumbar spine, described in detail above. This is asso ciated with significant foraminal and central canal stenosis of aforementioned levels. The central ca nal stenosis is most significant at L3-L4. The right foraminal stenosis is most significant at L3-L4 and L5-S1. The left foraminal stenosis is most significant at L3-L4, L4-L5 and L5-S1. These findings are not significantly changed compared to the prior exam. 3. Degenerative endplate irregularity primarily along the right aspect of L3-L4. The degree of adjace nt marrow edema does not favor superimposed discitis/osteomyelitis. There is also edema within the ri ght L4 pedicle which is degenerative or due to a stress reaction. 4. Clumping and peripheral deviation of the nerve roots at L4-L5 and L5-S1, stable compared to the pr ior exam and consistent with prior arachnoiditis. Electronically signed by: Ruth Henao MD (03/09/2022 12:25 PM) [facility]
== END ==
LOC: KCIC MRI 09:40
PROVIDERS: ATTEND Family Medicine
DX: M47.816 Spondylosis without myelopathy or radiculopathy, lumbar region (principal); M48.062 Spinal stenosis, lumbar region with neurogenic claudication; M51.27 Other intervertebral disc displacement, lumbosacral region; M48.8X7 Other specified spondylopathies, lumbosacral region; M41.86 Other forms of scoliosis, lumbar region; M43.16 Spondylolisthesis, lumbar region; M51.46 Schmorl's nodes, lumbar region; M25.78 Osteophyte, vertebrae; M47.22 Other spondylosis with radiculopathy, cervical region; M48.03 Spinal stenosis, cervicothoracic region; M48.8X3 Other specified spondylopathies, cervicothoracic region; M50.23 Other cervical disc displacement, cervicothoracic region; Z98.1 Arthrodesis status
CPT/HCPCS: 72141; 72148